=== PATIENT | female | born 1955 | race Caucasian/White ===

== ENCOUNTER 2020-08-25 08:28 | Emergency (ER) | payer OTHER, SELFPAY ==
[2020-08-25 08:45] VITALS: BP 194/86; PULSE 100; RESP 18; O2SAT 99; BMI 44.0
[2020-08-25 09:24] LABS: Add Manual Diff / Slide Review NO; Basophils Absolute Auto 0 /uL (0-100); Basophils Percent Auto 0.4 % (0-2); Eosinophils Absolute Auto 300 /uL (0-450); Hematocrit 37.7 % (36-46); Hemoglobin 12.5 g/dL (12.0-16.0); Lymphocytes Absolute Auto 1400 /uL (1100-4500); Lymphocytes Percent Auto 12.3 % (25-40); Mean Corpuscular HGB Conc 33.2 % (30-36); Mean Corpuscular Hemoglobin 28.2 PG (26-34); Monocytes Absolute Auto 500 /uL (0-900); Monocytes Percent Auto 4.4 % (3-14); Neutrophils Absolute Auto 8800 /uL (1500-7000); Neutrophils Percent Auto 79.9 % (50-75); Platelet Count 275 X10^3/uL (150-400); Red Blood Cell Count 4.44 X10^6/uL (4.0-5.2); Red Cell Distribution Width 14.9 % (11.6-14.8); White Blood Cell Count 11.1 X10^3/uL (4.5-11.0)
--- NOTE | 2020-08-25 09:26 | ED.NAVMDI ---
HPI - Nausea/Vomiting/Diarrhea General Chief complaint: Abdominal Pain Stated complaint: Diarrhea abd pain intermittenly x10 days Time Seen by Provider: 08/25/20 09:19 Source: patient Mode of arrival: Ambulatory Limitations: no limitations History of Present Illness HPI Narrative: The patient is a 65-year-old female who has an unknown immune disorder presenting with 10 days worth of diarrhea. She says she had a girlfriend went on a road trip over 08 of August weekend she then started having diarrhea. Diarrhea seems to have progressively gotten worse it is nonbloody this morning she woke up incontinent of stool. She has abdominal cramping as well. No nausea or vomiting no fevers or chills. She does have intense abdominal pain at times. She is not dizzy or lightheaded. However the diarrhea has gotten quite out of control. Her friend is not sick. No one else has similar symptoms. Related Data Allergies Allergy/AdvReac Type Severity Reaction Status Date / Time Penicillins Allergy Verified 08/25/20 08:47 Review of Systems Review of Systems Narrative: GENERAL: Denies chills, fatigue, malaise, fever, sweats, travel HEENT: Denies sinus pain, ear pain, sore throat, difficulty swallowing, neck pain RESPIRATORY: Denies dyspnea, cough, wheezing, hemoptysis, sputum. CARDIOVASCULAR: Denies chest pain, palpitations, orthopnea, edema GASTROINTESTINAL: See HPI : Denies dysuria, frequency, incontinence, hematuria, urinary retention, flank pain. MUSCULOSKELETAL: Denies weakness, joint pain, or bony pain SKIN: No rash, no erythema, no pruritus NEUROLOGIC: Denies weakness, dizziness, headache, numbness, change in speech, confusion PSYCHIATRIC: No concerning psychosocial issues. 12 point review of systems is negative except for those stated above and HPI Patient History Social History Smoking Status: Never smoker Smoking Status: Never smoker Substance Use Type: does not use Exam Initial Vital Signs Initial Vital Signs: Vital Signs Pulse Rate 100 H 08/25/20 08:45 Respiratory Rate 18 08/25/20 08:45 Blood Pressure 194/86 H 08/25/20 08:45 Pulse Oximetry 99 08/25/20 08:45 GENERAL: Alert well-appearing 65-year-old female and in no acute distress HEENT: Head atraumatic,EOMI, pupils reactive, face symmetric,mois mucous membranes CARDIOVASCULAR: Regular rate and rhythm without murmurs, rubs or gallops. RESPIRATORY: Breath sounds equal bilaterally, no wheezes rales or rhonchi. ABDOMEN: Soft mild diffuse abdominal tenderness Normoactive bowel sounds all 4 quadrants. No guarding or rebound. EXTREMITIES: Normal range of motion, no clubbing or edema. Neurovascularly intact NEUROLOGICAL: Alert and oriented x4.Normal gait and speech. SKIN: Warm, dry, no laceration, no petechiae, no rashes or lesions. Course Orders Ordered: Discontinued Medications Acetaminophen (Acetaminophen 325 Mg Tablet) 975 mg PO NOW ONE Stop: 08/25/20 09:20 Last Admin: 08/25/20 09:30 Dose: 975 mg Documented by: HALEY Sodium Chloride (Normal Saline 0.9%) 1,000 mls @ 1,000 mls/hr IV BOLUS ONE Stop: 08/25/20 10:18 Last Infusion: 08/25/20 10:57 Dose: 0 mls/hr Documented by: Admin: 08/25/20 09:30 Dose: 1,000 mls/hr Documented by: HALEY Vital Signs Vital signs: Vital Signs - 8 hr 08/25/20 08:45 Pulse Rate 100 H Respiratory Rate 18 Blood Pressure 194/86 H Pulse Oximetry 99 MDM - Nausea/Vomiting/Diarrhea Lab Data Result diagrams: 08/25/20 09:00 08/25/20 09:00 Labs: Lab Results 08/25/20 08/25/20 08/25/20 Range/Units 08:50 09:00 09:00 WBC 11.1 H (4.5-11.0) X10^3/uL RBC 4.44 (4.0-5.2) X10^6/uL Hgb 12.5 (12.0-16.0) g/dL Hct 37.7 (36-46) % MCV 85.0 (80-100) fL MCH 28.2 (26-34) PG MCHC 33.2 (30-36) % RDW 14.9 H (11.6-14.8) % Plt Count 275 (150-400) X10^3/uL Neut % (Auto) 79.9 H (50-75) % Lymph % (Auto) 12.3 L (25-40) % Cla[place]orne % (Auto) 4.4 (3-14) % Eos % (Auto) 3.0 (2-4) % Baso % (Auto) 0.4 (0-2) % Neut # (Auto) 8800 H (6620-9703) /uL Lymph # (Auto) 1400 (1238-4186) /uL [place]orne # (Auto) 500 (0-900) /uL Eos # (Auto) 300 (0-450) /uL Baso # (Auto) 0 (0-100) /uL Sodium 138 (137-145) mmol/L Potassium 3.5 (3.4-5.1) mmol/L Chloride 99 (98-107) mmol/L Carbon Dioxide 28 (22-32) mmol/L BUN 24 H (7-17) mg/dL Creatinine 0.84 (0.52-1.04) mg/dL Estimated GFR > 60.0 (>60) mL/min BUN/Creatinine Ratio 28.6 H (6-22) Glucose 114 H (80-110) mg/dL Calcium 10.2 (8.4-10.2) mg/dL Total Bilirubin 0.4 (0.2-1.3) mg/dL AST 34 (14-36) IU/L ALT 27 (<35) IU/L Alkaline Phosphatase 96 (38-126) U/L Total Protein 7.5 (6.3-8.2) g/dL Albumin 4.5 (3.5-5.0) g/dL Globulin 3.0 (1.7-4.1) g/dL Albumin/Globulin Ratio 1.5 (1.0-2.8) Lipase 163 (23-300) U/L Stl C. cayetanensis PCR Not detected (Not Detect) Stool Rotavirus (PCR) Not detected (Not Detect) Stool Adenovirus (PCR) Not detected (Not Detect) Stool Astrovirus (PCR) Not detected (Not Detect) Stool Cryptosporidium PCR Not detected (Not Detect) Stl E.coli Shiga Tox PCR Not detected (Not Detect) St Sh/Enteroin Ecoli PCR Not detected (Not Detect) Stool E coli O157 PCR Not Reportable Stl Enterotoxigenic E PCR Not detected (Not Detect) Stool EPEC (PCR) Not detected (Not Detect) Stl E. histolytica PCR Not detected (Not Detect) Stool Giardia Lamblia PCR Not detected (Not Detect) Stool Sapovirus (PCR) Not detected (Not Detect) Stl P. shigelloides PCR Not detected (Not Detect) St Y.enterocolitica PCR Not detected (Not Detect) Stool Vibrio (PCR) Not detected (Not Detect) Stl Vibrio cholerae PCR Not detected (Not Detect) Stl Enteroaggr Ecoli PCR Not detected (Not Detect) Stl Norovirus GI/GII PCR Detected H (Not Detect) Campylobacter (PCR) Not detected (Not Detect) C. difficile Tox (PCR) Not detected (Not Detect) Salmonella (PCR) Not detected (Not Detect) MDM Narrative Medical decision making narrative: The patient has been having ongoing diarrhea for the last 10 days. Blood work does not show any significant dehydration. GI panel is positive for norovirus. At this time recommend Imodium increasing fluids and conservative treatment. She understands and agrees with treatment plan. At this time I see no need for admission. Discharge Plan Departure Patient Disposition: Home Clinical Impression: Norovirus Instructions: Norovirus Infection Activity Restrictions/Additional Instructions: *You have been diagnosed with norovirus *What to do: At this time you have a virus which is causing her diarrhea. He may take Imodium as directed to help stop the diarrhea. Please stay hydrated with either water or Gatorade like substance. Unfortunately this resolves on its own and there is no other medication to give you. *Continue to take medications as directed *Follow up with your primary care provider in 2-3 days *Return to ER if you should have dizziness lightheadedness, passing out vomiting worsening diarrhea or any new, worsening or concerning symptoms Referrals: [facility] [Outside]
[2020-08-25 09:29] LABS: HEMOLYSIS < 15 (0-50); Potassium 3.5 mmol/L (3.4-5.1)
[2020-08-25 09:30] VITALS: BP 164/77; PULSE 93; RESP 15; O2SAT 99
[2020-08-25 09:30] LABS: Alanine Aminotransferase 27 IU/L (<35); Albumin 4.5 g/dL (3.5-5.0); Albumin Globulin Ratio 1.5 (1.0-2.8); Alkaline Phosphatase 96 U/L (38-126); Aspartate Aminotransferase 34 IU/L (14-36); BUN Creatinine Ratio 28.6 (6-22); Bilirubin Total 0.4 mg/dL (0.2-1.3); Blood Urea Nitrogen 24 mg/dL (7-17); Calcium 10.2 mg/dL (8.4-10.2); Carbon Dioxide 28 mmol/L (22-32); Chloride 99 mmol/L (98-107); Estimated Glomerular Filt Rate > 60.0 mL/min (>60); Glucose 114 mg/dL (80-110); Lipase 163 U/L (23-300); Sodium 138 mmol/L (137-145); Total Protein 7.5 g/dL (6.3-8.2)
[2020-08-25] MEDS: SODIUM CHLORIDE 0.9% 1,000 ML 1000 ML IV (09:30)
[2020-08-25] MEDS: ACETAMINOPHEN 325 MG TABLET 975 MG PO (09:30)
[2020-08-25 10:00] VITALS: BP 163/74; PULSE 85; RESP 14; O2SAT 99
[2020-08-25 10:35] LABS: Campylobacter Not Detected (Not Detect); Clostridium difficile toxin AB Not Detected (Not Detect); Enteroaggregative E.coli Not Detected (Not Detect); Enteropathogenic E.coli Not Detected (Not Detect); Enterotoxigenic E.coli It/st Not Detected (Not Detect); Plesiomonsa shigelloides Not Detected (Not Detect); Salmonella Not Detected (Not Detect); Shiga-like toxin-prod E.coli Not Detected (Not Detect); Vibrio Not Detected (Not Detect); Vibrio cholerae Not Detected (Not Detect); Yersinia enterocolitica Not Detected (Not Detect)
[2020-08-25 10:36] LABS: Adenovirus F 40/41 Not Detected (Not Detect); Astrovirus Not Detected (Not Detect); Cryptosporidium Not Detected (Not Detect); Cyclospora cayetanensis Not Detected (Not Detect); Entamoeba histolytica Not Detected (Not Detect); Giardia lamblia Not Detected (Not Detect); Norovirus GI/GII Detected (Not Detect); Rotavirus A Not Detected (Not Detect); Sapovirus Not Detected (Not Detect); Shigella/Enteroinvasive E.coli Not Detected (Not Detect)
[2020-08-25 11:00] VITALS: BP 150/71; PULSE 89; RESP 14; O2SAT 99
== END 2020-08-25 11:45 | disposition home or self-care (01) ==
PROVIDERS: Emergency Provider Emergency Medicine
DX: A08.11 Acute gastroenteropathy due to Norwalk agent (principal)
CPT/HCPCS: 36415; 80053; 83690; 85025; 87507; 96360; 99284

== ENCOUNTER → 2020-10-19 10:53 | Outpatient (CLI) | payer OTHER, SELFPAY ==
[2020-10-19 12:02] LABS: Add Manual Diff / Slide Review NO; Basophils Absolute Auto 0 /uL (0-100); Basophils Percent Auto 0.7 % (0-2); Eosinophils Absolute Auto 200 /uL (0-450); Eosinophils Percent Auto 3.2 % (2-4); Hemoglobin 11.9 g/dL (12.0-16.0); Lymphocytes Absolute Auto 2200 /uL (1100-4500); Mean Corpuscular HGB Conc 33.1 % (30-36); Mean Corpuscular Hemoglobin 28.2 PG (26-34); Mean Corpuscular Volume 85.2 fL (80-100); Monocytes Absolute Auto 400 /uL (0-900); Monocytes Percent Auto 6.8 % (3-14); Neutrophils Absolute Auto 3600 /uL (1500-7000); Neutrophils Percent Auto 55.3 % (50-75); Platelet Count 269 X10^3/uL (150-400); Red Blood Cell Count 4.23 X10^6/uL (4.0-5.2); Red Cell Distribution Width 14.6 % (11.6-14.8); White Blood Cell Count 6.5 X10^3/uL (4.5-11.0)
[2020-10-19 12:15] LABS: Hemoglobin A1C% w Est Avg Glu 5.4 % (4.0-6.0)
[2020-10-19 12:58] LABS: Alanine Aminotransferase 28 IU/L (<35); Albumin 4.4 g/dL (3.5-5.0); Albumin Globulin Ratio 1.6 (1.0-2.8); Alkaline Phosphatase 65 U/L (38-126); Aspartate Aminotransferase 36 IU/L (14-36); BUN Creatinine Ratio 21.7 (6-22); Bilirubin Total 0.3 mg/dL (0.2-1.3); Blood Urea Nitrogen 18 mg/dL (7-17); Calcium 9.4 mg/dL (8.4-10.2); Carbon Dioxide 31 mmol/L (22-32); Chloride 99 mmol/L (98-107); Estimated Glomerular Filt Rate > 60.0 mL/min (>60); Globulin 2.8 g/dL (1.7-4.1); Glucose 107 mg/dL (80-110); HEMOLYSIS < 15 (0-50); Potassium 3.6 mmol/L (3.4-5.1); Sodium 137 mmol/L (137-145); Total Protein 7.2 g/dL (6.3-8.2)
[2020-10-19 13:13] LABS: Free T3, Triiodothyronine Free 3.12 pg/mL (2.77-5.27); Free T4, Direct Thyroxine 1.18 ng/dL (0.78-2.19)
[2020-10-19 13:27] LABS: Thyroid Stimulating Hormone 2.61 uIU/mL (0.47-4.68)
[2020-10-19 16:18] LABS: Vitamin D 25 Hydroxy (D3) 50.7 ng/mL (30.0-100.0)
[2020-10-20 04:36] LABS: Homocysteine 12.9 umol/L (0.0-17.2)
[2020-10-20 08:53] LABS: Thyroid Peroxidase Antibodies <8 IU/mL (0-34); Triiodothyronine T3 Total 118 ng/dL (71-180)
[2020-10-20 10:00] LABS: Insulin Level Total 18.5 uIU/mL (2.6-24.9)
[2020-10-20 16:16] LABS: Cadmium, Blood None Detected ug/L (0.0-1.2); Lead, Blood < 1 ug/dL (0-4); Mercury, Blood 1.2 ug/L (0.0-14.9)
[2020-10-20 18:42] LABS: Anti Thyroglobulin Antibody <1.0 IU/mL (0.0-0.9)
[2020-10-21 08:36] LABS: Cholesterol, Total 150 mg/dL (100-199); HDL-Cholesterol 52 mg/dL (>39); HDL-Particle (Total) 35.4 umol/L (>=30.5); LDL Particle 1221 nmol/L (<1000); LDL Size 20.5 nm (>20.5); LDL-Cholsterol 75 mg/dL (0-99); LP-IR Score 82 (<=45); Small LDL- Particle 690 nmol/L (<=527); Triglycerides 128 mg/dL (0-149)
[2020-10-28 16:13] LABS: Epstein Barr Virus by PCR Negative (Negative)
== END ==
PROVIDERS: Referring Provider Family Medicine; Visit Provider Family Medicine
DX: G89.29 Other chronic pain (principal); R19.7 Diarrhea, unspecified; E66.3 Overweight; D89.89 Other specified disorders involving the immune mechanism, not elsewhere classified; E56.9 Vitamin deficiency, unspecified
CPT/HCPCS: 36415; 80053; 80061; 82175; 82300; 82306; 83036; 83090; 83525; 83655; 83704; 83825; 84439; 84443; 84480; 84481; 84482; 85025; 86140; 86376; 86663; 86800; 87798

== ENCOUNTER → 2020-11-30 11:11 | Outpatient (CLI) | payer OTHER, SELFPAY ==
[2020-11-30 13:00] LABS: HEMOLYSIS < 15 (0-50); Iron 49 ug/dL (37-170)
[2020-11-30 13:11] LABS: Percent Iron Saturation 15 % (15-50); Total Iron Binding Capacity 323 ug/dL (265-497); Transferrin 271 mg/dL (206-381)
[2020-11-30 13:24] LABS: Ferritin 146 ng/mL (11-264)
[2020-12-01 04:48] LABS: IGA 171 mg/dL (87-352); IGG 607 mg/dL (586-1602); IGM 78 mg/dL (26-217)
== END ==
PROVIDERS: Referring Provider Family Medicine; Visit Provider Family Medicine
DX: D89.89 Other specified disorders involving the immune mechanism, not elsewhere classified (principal); M41.24 Other idiopathic scoliosis, thoracic region; E63.9 Nutritional deficiency, unspecified; G89.29 Other chronic pain; R79.82 Elevated C-reactive protein (CRP)
CPT/HCPCS: 36415; 81291; 82728; 82784; 83540; 83550

== ENCOUNTER → 2021-01-22 10:40 | Outpatient (CLI) | payer OTHER, SELFPAY ==
[2021-01-22 12:50] LABS: HEMOLYSIS < 15 (0-50); Iron 51 ug/dL (37-170)
[2021-01-22 13:01] LABS: Percent Iron Saturation 15 % (15-50); Total Iron Binding Capacity 333 ug/dL (265-497); Transferrin 250 mg/dL (206-381)
[2021-01-22 13:26] LABS: Ferritin 196 ng/mL (11-264)
[2021-01-23 09:36] LABS: IGA 176 mg/dL (87-352); IGG 699 mg/dL (586-1602); IGM 94 mg/dL (26-217)
== END ==
PROVIDERS: Referring Provider Family Medicine; Visit Provider Family Medicine
DX: D89.89 Other specified disorders involving the immune mechanism, not elsewhere classified (principal); M41.24 Other idiopathic scoliosis, thoracic region; G89.29 Other chronic pain; E63.9 Nutritional deficiency, unspecified; R79.82 Elevated C-reactive protein (CRP)
CPT/HCPCS: 36415; 81291; 82728; 82784; 83540; 83550

== ENCOUNTER → 2021-03-19 12:14 | Outpatient (CLI) | payer OTHER, SELFPAY ==
[2021-03-19 13:39] LABS: Add Manual Diff / Slide Review NO; Basophils Absolute Auto 100 /uL (0-100); Basophils Percent Auto 1.1 % (0-2); Eosinophils Absolute Auto 200 /uL (0-450); Eosinophils Percent Auto 3.5 % (2-4); Hematocrit 35.2 % (36-46); Hemoglobin 11.6 g/dL (12.0-16.0); Lymphocytes Absolute Auto 2800 /uL (1100-4500); Lymphocytes Percent Auto 42.3 % (25-40); Mean Corpuscular HGB Conc 32.9 % (30-36); Mean Corpuscular Hemoglobin 28.2 PG (26-34); Mean Corpuscular Volume 85.5 fL (80-100); Monocytes Absolute Auto 500 /uL (0-900); Monocytes Percent Auto 7.3 % (3-14); Neutrophils Absolute Auto 3100 /uL (1500-7000); Neutrophils Percent Auto 45.8 % (50-75); Platelet Count 242 X10^3/uL (150-400); Red Blood Cell Count 4.12 X10^6/uL (4.0-5.2); Red Cell Distribution Width 15.5 % (11.6-14.8); White Blood Cell Count 6.7 X10^3/uL (4.5-11.0)
[2021-03-19 14:30] LABS: C-Reactive Protein Quant < 0.5 mg/dL (<1.0)
[2021-03-19 17:50] LABS: Vitamin D 25 Hydroxy (D3) 54.5 ng/mL (30.0-100.0)
[2021-03-20 12:07] LABS: Homocysteine 12.9 umol/L (0.0-17.2)
[2021-03-21 04:17] LABS: Zinc 99 ug/dL (44-115)
== END ==
PROVIDERS: Referring Provider Family Medicine; Visit Provider Family Medicine
DX: Z77.120 Contact with and (suspected) exposure to mold (toxic) (principal); R79.82 Elevated C-reactive protein (CRP); D89.89 Other specified disorders involving the immune mechanism, not elsewhere classified; E63.9 Nutritional deficiency, unspecified
CPT/HCPCS: 36415; 82306; 82525; 83090; 84630; 85025; 86140

== ENCOUNTER → 2021-06-16 09:51 | Outpatient (CLI) | payer OTHER, SELFPAY ==
--- NOTE | 2021-06-16 09:58 | DI.MG.S_ITS ---
BILATERAL DIGITAL SCREENING MAMMOGRAM 3D/2D WITH CAD: 06/16/2021 CLINICAL: Routine screening. Baseline exam by default. No prior exams were available for comparison. The tissue of both breasts is predominantly fatty. Current study was also evaluated with a Computer Aided Detection (CAD) system. There is a 0.3 cm irregular asymmetry in the right breast at 1 o'clock middle depth 10 cm from the nipple. No other significant masses, calcifications, or other findings are seen in either breast. IMPRESSION: INCOMPLETE: NEEDS ADDITIONAL IMAGING EVALUATION The 0.3 cm irregular asymmetry in the right breast is indeterminate. Additional views with possible ultrasound are recommended. This exam was interpreted at Station ID: [id number]. NOTE: For mammograms, a report in lay terms will be sent to the patient. Approximately 15% of breast malignancies will not be visualized mammographically. In the management of a palpable breast mass, a negative mammogram must not discourage biopsy of a clinically suspicious lesion. Electronically Signed By: Leo Stevenson acr/:06/16/2021 14:01:36 letter sent: Additional Imaging Needed ACR BI-RADS Category 0: Incomplete 3340F
[2021-06-16 11:58] LABS: Add Manual Diff / Slide Review NO; Basophils Absolute Auto 100 /uL (0-100); Basophils Percent Auto 0.8 % (0-2); Eosinophils Absolute Auto 300 /uL (0-450); Eosinophils Percent Auto 4.1 % (2-4); Hematocrit 36.5 % (36-46); Hemoglobin 12.2 g/dL (12.0-16.0); Lymphocytes Absolute Auto 2800 /uL (1100-4500); Lymphocytes Percent Auto 37.7 % (25-40); Mean Corpuscular HGB Conc 33.4 % (30-36); Mean Corpuscular Hemoglobin 28.5 PG (26-34); Mean Corpuscular Volume 85.3 fL (80-100); Monocytes Absolute Auto 400 /uL (0-900); Monocytes Percent Auto 5.9 % (3-14); Neutrophils Absolute Auto 3800 /uL (1500-7000); Neutrophils Percent Auto 51.5 % (50-75); Platelet Count 239 X10^3/uL (150-400); Red Blood Cell Count 4.28 X10^6/uL (4.0-5.2); Red Cell Distribution Width 14.2 % (11.6-14.8); White Blood Cell Count 7.3 X10^3/uL (4.5-11.0)
[2021-06-16 13:26] LABS: Appearance Urine UA CLEAR; Bilirubin Urine UA NEGATIVE (NEGATIVE); Color Urine UA YELLOW; Glucose Urine UA NEGATIVE (Negative); Ketones Urine UA NEGATIVE (NEGATIVE); Leukocyte Esterase Urine UA TRACE (NEGATIVE); Nitrite Urine UA NEGATIVE (Negative); Occult Blood Urine UA TRACE-LYSED (Negative); Protein Urine UA NEGATIVE (Negative); Specific Gravity Urine UA 1.025 (1.000-1.035); Urobilinogen Urine UA 0.2 E.U./dL (0.2)
[2021-06-16 13:31] LABS: Bacteria Urine None Seen; Culture Indicated Urine Cult Not Indicated; RBC Urine 0-1/HPF (0-5/HPF); Squamous Epithelial Cell Urine 5-10 /HPF (0-5/HPF); WBC Urine 1-5/HPF (0-5/HPF)
== END ==
PROVIDERS: Internal Medicine
DX: Z78.0 Asymptomatic menopausal state; Z77.120 Contact with and (suspected) exposure to mold (toxic); D64.9 Anemia, unspecified; D89.89 Other specified disorders involving the immune mechanism, not elsewhere classified; E63.9 Nutritional deficiency, unspecified; Z13.820 Encounter for screening for osteoporosis; Z12.31 Encounter for screening mammogram for malignant neoplasm of breast; R35.0 Frequency of micturition; Z90.710 Acquired absence of both cervix and uterus
CPT/HCPCS: 36415; 77063; 77067; 77080; 81001; 85025

== ENCOUNTER → 2021-08-04 11:52 | Outpatient (CLI) | payer OTHER, SELFPAY ==
--- NOTE | 2021-08-04 | DI.MG.S_ITS ---
UNILATERAL RIGHT DIGITAL DIAGNOSTIC MAMMOGRAM 3D/2D WITH ADDITIONAL VIEWS: 08/04/2021 CLINICAL: Additional evaluation requested from prior study. Comparison is made to exam dated: 06/16/2021 mammogram - [facility] [place]. The tissue of right breast is predominantly fatty. The previously described 0.3 cm irregular asymmetry in the right breast at 1 o'clock middle depth 10 cm from the nipple is no longer seen in today's additional views. This is consistent with summation artifact. No other significant masses or calcifications are seen in the breast. IMPRESSION: BENIGN The previously described asymmetry disperses with additional views and is consistent with summation artifact. There is no mammographic evidence of malignancy. A 1 year screening mammogram is recommended. Based on the Tyrer Cuzick model (a risk assessment model) the patient's lifetime risk is 3.8% and her 10 year risk is 1.9%. According to the ACR, ACS, and NCCN guidelines, an annual breast MRI exam along with mammogram is recommended if the patient's lifetime risk is 20% or greater. Findings and recommendations were conveyed to the patient during today's evaluation. This exam was interpreted at Station ID: [id number]. NOTE: For mammograms, a report in lay terms will be sent to the patient. Approximately 15% of breast malignancies will not be visualized mammographically. In the management of a palpable breast mass, a negative mammogram must not discourage biopsy of a clinically suspicious lesion. Electronically Signed By: Simone Decker M.D. aty/:08/04/2021 12:48:06 Entry: - 08/05/2021 10:06:13 letter sent: Normal Exam ACR BI-RADS Category 2: Benign Finding(s) 3342F
== END ==
PROVIDERS: Referring Provider Internal Medicine; Visit Provider Internal Medicine
DX: R92.8 Other abnormal and inconclusive findings on diagnostic imaging of breast (principal)
CPT/HCPCS: 77065; G0279

== ENCOUNTER 2021-10-25 10:05 | Emergency (ER) | payer OTHER, SELFPAY ==
[2021-10-25 10:38] VITALS: BP 137/77; PULSE 78; RESP 15; TEMP 36; O2SAT 98; BMI 35.3
--- NOTE | 2021-10-25 13:00 | ED_ITS ---
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 She states she also takes chlorthalidone. Patient states that she eats a Paleo diet without greens, has had left lower quadrant pain for the last 4 days with all foods. States that she is had some belching and gas pains but denies any vomiting, diarrhea, denies any blood in her stool. She states that she has felt fatigued, warm and cold, denies any pain with defecation, denies any urinary frequency, urgency, dysuria or flank pain. Denies any epigastric pain, chest pain or shortness of breath. Denies any history of diverticulitis. Related Data Previous Rx's Medication Instructions Recorded ciprofloxacin HCl 500 mg tablet 500 mg PO BID 10 days #20 tabs 10/25/21 (Cipro) metronidazole 500 mg tablet 500 mg PO TID diverticulitis 10 10/25/21 days #30 tabs potassium chloride 20 mEq 20 meq PO BID 7 days #14 tabs 10/25/21 tablet,extended release Allergies Allergy/AdvReac Type Severity Reaction Status Date / Time Penicillins Allergy Verified 08/25/20 08:47 Review of Systems <GURWINDER Desai - Last Filed: 10/26/21 20:30> Review of Systems Narrative: Review of systems is negative for acute abnormalities unless otherwise noted in HPI Patient History <GURWINDER Desai - Last Filed: 10/26/21 20:30> Social History Smoking Status: Never smoker Smoking Status: Never smoker Substance Use Type: does not use Exam <GURWINDER Desai - Last Filed: 10/26/21 20:30> Narrative Exam Narrative: Reviewed vitals signs and nursing notes. General: cooperative, comfortable, in no acute distress, well groomed HEENT: symmetrical facial expressions, moist mucous membranes Cardiovascular: regular rate and rhythm, no peripheral edema, warm extremities Respiratory: normal effort, able to speak in complete sentences, without wheezing, stridor, or abnormal breath sounds. No retractions or tachypnea. GI: abdomen soft, tender to palpation over left lower quadrant, no suprapubic tenderness, nondistended, without masses, rebound tenderness or exquisite tenderness with exam. MSK: moves all extremities, neurovascularly intact, no weakness, normal tone Skin: brisk capillary refill, without pallor or erythema Neuro: normal speech and cognition, A&O x3, ambulatory, clear speech Psych: mental status is grossly normal, congruent mood, normal affect, pleasant and cooperative Initial Vital Signs Initial Vital Signs: Vital Signs Temperature 96.8 F L 10/25/21 10:38 Pulse Rate 78 10/25/21 10:38 Respiratory Rate 15 10/25/21 10:38 Blood Pressure 137/77 10/25/21 10:38 Pulse Oximetry 98 10/25/21 10:38 Oxygen Delivery Method 10/25/21 10:38 <Ekta Gomez DO - Last Filed: 10/27/21 05:35> Initial Vital Signs Initial Vital Signs: Vital Signs Temperature 96.8 F L 10/25/21 10:38 Pulse Rate 78 10/25/21 10:38 Respiratory Rate 15 10/25/21 10:38 Blood Pressure 137/77 10/25/21 10:38 Pulse Oximetry 98 10/25/21 10:38 Oxygen Delivery Method 10/25/21 10:38 Course <GURWINDER Desai - Last Filed: 10/26/21 20:30> Orders Ordered: Discontinued Medications Acetaminophen (Acetaminophen 325 Mg Tablet) 975 mg PO NOW ONE Stop: 10/25/21 13:46 Last Admin: 10/25/21 13:48 Dose: 975 mg Documented By: [facility] Ciprofloxacin (Ciprofloxacin 250 Mg Tablet) 500 mg PO NOW ONE Stop: 10/25/21 14:20 Last Admin: 10/25/21 14:34 Dose: 500 mg Documented By: [facility] Lactated Ringer's (Lactated Ringers) 1,000 mls @ 1,000 mls/hr IV BOLUS ONE Stop: 10/25/21 13:55 Last Infusion: 10/25/21 14:34 Dose: 0 mls/hr Documented By: Admin: 10/25/21 13:23 Dose: 1,000 mls/hr Documented By: [facility] Ketorolac Tromethamine (Ketorolac 30 Mg/Ml Vial) 15 mg IV NOW ONE Stop: 10/25/21 13:25 Last Admin: 10/25/21 13:46 Dose: Not Given Documented By: [facility] Metronidazole (Metronidazole 500 Mg Tablet) 500 mg PO NOW ONE Stop: 10/25/21 14:20 Last Admin: 10/25/21 14:34 Dose: 500 mg Documented By: [facility] Potassium Chloride (Potassium Chloride 20 Meq/15 Ml Udc) 40 meq PO NOW ONE Stop: 10/25/21 14:32 Last Admin: 10/25/21 14:39 Dose: 40 meq Documented By: [facility] Vital Signs Vital signs: Vital Signs - 8 hr 10/25/21 10:38 10/25/21 13:06 10/25/21 13:25 Temperature 96.8 F L Pulse Rate 78 69 67 Respiratory Rate 15 20 Blood Pressure 137/77 Pulse Oximetry 98 97 98 Oxygen Delivery Method Room Air 10/25/21 13:25 10/25/21 13:30 10/25/21 13:30 Temperature Pulse Rate 67 Respiratory Rate 20 Blood Pressure 147/73 H 143/80 H Pulse Oximetry 97 Oxygen Delivery Method 10/25/21 13:50 10/25/21 14:31 Temperature Pulse Rate 75 Respiratory Rate 23 Blood Pressure 150/72 H Pulse Oximetry 98 Oxygen Delivery Method <Ekta Gomez, - Last Filed: 10/27/21 05:35> Orders Ordered: Discontinued Medications Acetaminophen (Acetaminophen 325 Mg Tablet) 975 mg PO NOW ONE Stop: 10/25/21 13:46 Last Admin: 10/25/21 13:48 Dose: 975 mg Documented By: [facility] Ciprofloxacin (Ciprofloxacin 250 Mg Tablet) 500 mg PO NOW ONE Stop: 10/25/21 14:20 Last Admin: 10/25/21 14:34 Dose: 500 mg Documented By: [facility] Lactated Ringer's (Lactated Ringers) 1,000 mls @ 1,000 mls/hr IV BOLUS ONE Stop: 10/25/21 13:55 Last Infusion: 10/25/21 14:34 Dose: 0 mls/hr Documented By: Admin: 10/25/21 13:23 Dose: 1,000 mls/hr Documented By: [facility] Ketorolac Tromethamine (Ketorolac 30 Mg/Ml Vial) 15 mg IV NOW ONE Stop: 10/25/21 13:25 Last Admin: 10/25/21 13:46 Dose: Not Given Documented By: [facility] Metronidazole (Metronidazole 500 Mg Tablet) 500 mg PO NOW ONE Stop: 10/25/21 14:20 Last Admin: 10/25/21 14:34 Dose: 500 mg Documented By: [facility] Potassium Chloride (Potassium Chloride 20 Meq/15 Ml Udc) 40 meq PO NOW ONE Stop: 10/25/21 14:32 Last Admin: 10/25/21 14:39 Dose: 40 meq Documented By: [facility] Vital Signs Vital signs: Vital Signs - 8 hr 10/25/21 10:38 10/25/21 13:06 10/25/21 13:25 Temperature 96.8 F L Pulse Rate 78 69 67 Respiratory Rate 15 20 Blood Pressure 137/77 Pulse Oximetry 98 97 98 Oxygen Delivery Method Room Air 10/25/21 13:25 10/25/21 13:30 10/25/21 13:30 Temperature Pulse Rate 67 Respiratory Rate 20 Blood Pressure 147/73 H 143/80 H Pulse Oximetry 97 Oxygen Delivery Method 10/25/21 13:50 10/25/21 14:31 Temperature Pulse Rate 75 Respiratory Rate 23 Blood Pressure 150/72 H Pulse Oximetry 98 Oxygen Delivery Method MDM - Abdominal Pain <VAISHNAVI DesaiP - Last Filed: 10/26/21 20:30> Lab Data Result diagrams: 10/25/21 13:00 10/25/21 13:00 Labs: Lab Results 10/25/21 10/25/21 10/25/21 Range/Units 12:50 13:00 13:00 WBC 12.4 H (4.5-11.0) X10^3/uL RBC 4.58 (4.0-5.2) X10^6/uL Hgb 13.2 (12.0-16.0) g/dL Hct 38.6 (36-46) % MCV 84.3 (80-100) fL MCH 28.8 (26-34) PG MCHC 34.1 (30-36) % RDW 13.3 (11.6-14.8) % Plt Count 241 (150-400) X10^3/uL Neut % (Auto) 61.6 (50-75) % Lymph % (Auto) 27.1 (25-40) % [place] % (Auto) 6.9 (3-14) % Eos % (Auto) 3.8 (2-4) % Baso % (Auto) 0.6 (0-2) % Neut # (Auto) 7600 H (0203-6080) /uL Lymph # (Auto) 3400 (5061-3994) /uL [place] # (Auto) 900 (0-900) /uL Eos # (Auto) 500 H (0-450) /uL Baso # (Auto) 100 (0-100) /uL Sodium 133 L (137-145) mmol/L Potassium 2.8 L (3.4-5.1) mmol/L Chloride 92 L (98-107) mmol/L Carbon Dioxide 34 H (22-32) mmol/L BUN 18 H (7-17) mg/dL Creatinine 0.99 (0.52-1.04) mg/dL Estimated GFR > 60 (>60) mL/min BUN/Creatinine Ratio 18.2 (6-22) Glucose 101 (80-110) mg/dL Lactate (0.7-2.1) mmol/L Calcium 9.3 (8.4-10.2) mg/dL Total Bilirubin 0.7 (0.2-1.3) mg/dL AST 35 (14-36) IU/L ALT 19 (<35) IU/L Alkaline Phosphatase 103 (38-126) U/L C-Reactive Protein (<1.0) mg/dL Total Protein 8.1 (6.3-8.2) g/dL Albumin 4.3 (3.5-5.0) g/dL Globulin 3.8 (1.7-4.1) g/dL Albumin/Globulin Ratio 1.1 (1.0-2.8) Lipase 226 (23-300) U/L Procalcitonin (<0.5) ng/mL Urine RBC None seen (0-5/HPF) Urine WBC 1-5/hpf (0-5/HPF) Ur Squamous Epith Cells 1-5 /hpf (0-5/HPF) Urine Bacteria Moderate (10-30) H (None) Ur Culture Indicated? Specimen cultured 10/25/21 10/25/21 Range/Units 13:00 13:00 WBC (4.5-11.0) X10^3/uL RBC (4.0-5.2) X10^6/uL Hgb (12.0-16.0) g/dL Hct (36-46) % MCV (80-100) fL MCH (26-34) PG MCHC (30-36) % RDW (11.6-14.8) % Plt Count (150-400) X10^3/uL Neut % (Auto) (50-75) % Lymph % (Auto) (25-40) % [place] % (Auto) (3-14) % Eos % (Auto) (2-4) % Baso % (Auto) (0-2) % Neut # (Auto) (7980-5715) /uL Lymph # (Auto) (8792-4106) /uL [place] # (Auto) (0-900) /uL Eos # (Auto) (0-450) /uL Baso # (Auto) (0-100) /uL Sodium (137-145) mmol/L Potassium (3.4-5.1) mmol/L Chloride (98-107) mmol/L Carbon Dioxide (22-32) mmol/L BUN (7-17) mg/dL Creatinine (0.52-1.04) mg/dL Estimated GFR (>60) mL/min BUN/Creatinine Ratio (6-22) Glucose (80-110) mg/dL Lactate 1.1 (0.7-2.1) mmol/L Calcium (8.4-10.2) mg/dL Total Bilirubin (0.2-1.3) mg/dL AST (14-36) IU/L ALT (<35) IU/L Alkaline Phosphatase (38-126) U/L C-Reactive Protein 12.7 H (<1.0) mg/dL Total Protein (6.3-8.2) g/dL Albumin (3.5-5.0) g/dL Globulin (1.7-4.1) g/dL Albumin/Globulin Ratio (1.0-2.8) Lipase (23-300) U/L Procalcitonin 0.06 (<0.5) ng/mL Urine RBC (0-5/HPF) Urine WBC (0-5/HPF) Ur Squamous Epith Cells (0-5/HPF) Urine Bacteria (None) Ur Culture Indicated? Point of care testing: Point of Care Testing Stool Occult Blood Negative Urine Dip Bedside Urine Glucose Negative Bedside Urine Bilirubin - Negative Bedside Urine Ketone - Negative Urine Specific [place] 1.015 Bedside Urine Occult Blood - Negative Bedside Urine pH 6.0 Bedside Urine Protein - Negative Bedside Urine Urobilinogen - Negative Bedside Urine Nitrite - Negative Bedside Urine Leukocytes +/- [address] scan - abdomen/pelvis: Radiologist's Impression: PROCEDURE:? CT ABDOMEN PELVIS W CON ? INDICATIONS:? diverticulitis?, LLQ pain ? TECHNIQUE:? After the administration of intravenous contrast, axial sections acquired from the lung bases to the pubic symphysis.? Coronal and sagittal reformats were performed.? For radiation dose reduction, the following was used:? automated exposure control, adjustment of mA and/or kV according to patient size.? ? COMPARISON:? None. ? FINDINGS:? Extensive diverticulosis in the distal descending colon and sigmoid colon.? Inflammatory changes centered on a diverticulum in the mid sigmoid colon with associated sigmoid colonic wall thickening and mucosal hyperenhancement along with adjacent fat stranding and small volume free fluid.? No fluid collection or free air.? Mild left pelvic sidewall reactive lymphadenopathy.? No salient abnormality otherwise. ? ? IMPRESSION:? [id number] acute sigmoid diverticulitis. ? ? Dictated by: Tyler Jon M.D. on 10/25/2021 at 14:12 ? ? Approved by: Tyler Jon M.D. on 10/25/2021 at 14:13 ? ECG Data Interpretation: EKG independently reviewed by myself at 1311 reveals normal sinus rhythm at 73 bpm with regular axis and intervals. No STEMI, ST segment changes, arrhythmia, or acute ischemic changes. MDM Narrative Medical decision making narrative: This is a 66-year-old female presents to the emergency department complaining of lower abdominal pain with all foods she has tried to eat. She denies any history of diverticulitis or fever with vomiting, states that she is been slightly constipated recently. Her lab work is significant for a mild leukocytosis of 12.4 with a left shift, hypokalemia with a potassium level of 2.8. Patient states that she has been taking a delbert supplement for ?buildup of mold in her body? and this may be where her hypokalemia is coming from because she does not have vomiting or diarrhea no presumed GI loss. Creatinine is 0.99, lactate is 1.1, total bilirubin is 0.7 AST of 35 ALT of 19 alk phos of 103, CRP is elevated at 12.7, procalcitonin is 0.06 and lipase of 226. Patient has moderate amount of bacteria found in her urine, this was sent for culture, she denied any dysuria, frequency or urgency symptoms. CT abdomen pelvis with contrast shows [id number] acute sigmoid diverticulitis which correlates with physical exam as patient was tender in her lower left quadrant. Denies any history of diverticulitis but states that her father and her mother both have history of this. Patient is allergic to penicillin, she was treated for diverticulitis and acute cystitis with Cipro and Flagyl, she was given a 10 day prescription of both and encouraged to follow-up with her primary care provider. She is given 40 mEq of potassium in the emergency department, she did not have any EKG changes on EKG. She is encouraged to start a clear liquid diet and to return for any new or worsening symptoms. Patient is appropriate and amenable to discharge home. Vital signs are stable on repeat examination is unremarkable. Patient has been informed of results. Patient has been given str ict return to ER precautions for any new or worsening symptoms. Patient understands to follow up closely with outpatient providers as instructed. Patient understands plan and agrees to discharge home. All questions and concerns answered at this time. <Ekta Gomez, DO - Last Filed: 10/27/21 05:35> Lab Data Labs: Lab Results 10/25/21 10/25/21 10/25/21 Range/Units 12:50 13:00 13:00 WBC 12.4 H (4.5-11.0) X10^3/uL RBC 4.58 (4.0-5.2) X10^6/uL Hgb 13.2 (12.0-16.0) g/dL Hct 38.6 (36-46) % MCV 84.3 (80-100) fL MCH 28.8 (26-34) PG MCHC 34.1 (30-36) % RDW 13.3 (11.6-14.8) % Plt Count 241 (150-400) X10^3/uL Neut % (Auto) 61.6 (50-75) % Lymph % (Auto) 27.1 (25-40) % [place] % (Auto) 6.9 (3-14) % Eos % (Auto) 3.8 (2-4) % Baso % (Auto) 0.6 (0-2) % Neut # (Auto) 7600 H (9145-5492) /uL Lymph # (Auto) 3400 (5724-5926) /uL [place] # (Auto) 900 (0-900) /uL Eos # (Auto) 500 H (0-450) /uL Baso # (Auto) 100 (0-100) /uL Sodium 133 L (137-145) mmol/L Potassium 2.8 L (3.4-5.1) mmol/L Chloride 92 L (98-107) mmol/L Carbon Dioxide 34 H (22-32) mmol/L BUN 18 H (7-17) mg/dL Creatinine 0.99 (0.52-1.04) mg/dL Estimated GFR > 60 (>60) mL/min BUN/Creatinine Ratio 18.2 (6-22) Glucose 101 (80-110) mg/dL Lactate (0.7-2.1) mmol/L Calcium 9.3 (8.4-10.2) mg/dL Total Bilirubin 0.7 (0.2-1.3) mg/dL AST 35 (14-36) IU/L ALT 19 (<35) IU/L Alkaline Phosphatase 103 (38-126) U/L C-Reactive Protein (<1.0) mg/dL Total Protein 8.1 (6.3-8.2) g/dL Albumin 4.3 (3.5-5.0) g/dL Globulin 3.8 (1.7-4.1) g/dL Albumin/Globulin Ratio 1.1 (1.0-2.8) Lipase 226 (23-300) U/L Procalcitonin (<0.5) ng/mL Urine RBC None seen (0-5/HPF) Urine WBC 1-5/hpf (0-5/HPF) Ur Squamous Epith Cells 1-5 /hpf (0-5/HPF) Urine Bacteria Moderate (10-30) H (None) Ur Culture Indicated? Specimen cultured 10/25/21 10/25/21 Range/Units 13:00 13:00 WBC (4.5-11.0) X10^3/uL RBC (4.0-5.2) X10^6/uL Hgb (12.0-16.0) g/dL Hct (36-46) % MCV (80-100) fL MCH (26-34) PG MCHC (30-36) % RDW (11.6-14.8) % Plt Count (150-400) X10^3/uL Neut % (Auto) (50-75) % Lymph % (Auto) (25-40) % [place] % (Auto) (3-14) % Eos % (Auto) (2-4) % Baso % (Auto) (0-2) % Neut # (Auto) (6939-0532) /uL Lymph # (Auto) (4924-2606) /uL [place] # (Auto) (0-900) /uL Eos # (Auto) (0-450) /uL Baso # (Auto) (0-100) /uL Sodium (137-145) mmol/L Potassium (3.4-5.1) mmol/L Chloride (98-107) mmol/L Carbon Dioxide (22-32) mmol/L BUN (7-17) mg/dL Creatinine (0.52-1.04) mg/dL Estimated GFR (>60) mL/min BUN/Creatinine Ratio (6-22) Glucose (80-110) mg/dL Lactate 1.1 (0.7-2.1) mmol/L Calcium (8.4-10.2) mg/dL Total Bilirubin (0.2-1.3) mg/dL AST (14-36) IU/L ALT (<35) IU/L Alkaline Phosphatase (38-126) U/L C-Reactive Protein 12.7 H (<1.0) mg/dL Total Protein (6.3-8.2) g/dL Albumin (3.5-5.0) g/dL Globulin (1.7-4.1) g/dL Albumin/Globulin Ratio (1.0-2.8) Lipase (23-300) U/L Procalcitonin 0.06 (<0.5) ng/mL Urine RBC (0-5/HPF) Urine WBC (0-5/HPF) Ur Squamous Epith Cells (0-5/HPF) Urine Bacteria (None) Ur Culture Indicated? Point of care testing: Point of Care Testing Stool Occult Blood Negative Urine Dip Bedside Urine Glucose Negative Bedside Urine Bilirubin - Negative Bedside Urine Ketone - Negative Urine Specific [place] 1.015 Bedside Urine Occult Blood - Negative Bedside Urine pH 6.0 Bedside Urine Protein - Negative Bedside Urine Urobilinogen - Negative Bedside Urine Nitrite - Negative Bedside Urine Leukocytes +/- 15 Esterase ECG Data Interpretation: EKG independently reviewed by myself at 1311 reveals normal sinus rhythm at 73 bpm with regular axis and intervals. No STEMI, ST segment changes, arrhythmia, or acute ischemic changes. Normal sinus rhythm rate 73 [place] interval 154 QRS [address] T Discharge Plan Departure Patient Disposition: Home Clinical Impression: Diverticulitis, Hypokalemia Acute cystitis Qualifiers: Hematuria presence: with hematuria Qualified Code(s): N30.01 - Acute cystitis with hematuria Instructions: Acute Cystitis, DI for Diverticulitis, Hypokalemia Activity Restrictions/Additional Instructions: *You have been diagnosed with diverticulitis. Please start with clear liquids, until your tolerating this then you can move on with diet recommendations as below that aligned with your diet. Please add a stool softener like MiraLax as needed to help keep your stool soft. Stay hydrated, please take these antibiotics for the next 10 days and return if you have any worsening of your symptoms. Please follow-up with your primary care provider in the meantime, and return to the emergency department or see your primary care provider if your symptoms are ongoing beyond the course of your antibiotics. I hope you feel better soon. Sorry for your symptoms. You can stop taking your antibiotics if you have 0 symptoms after 7 days. Please take the potassium supplement each day for the next 5 days as well. Please follow-up with your doctor to recheck your lab work. Diet details Your diet starts with only clear liquids for a few days. Examples of items allowed on a clear liquid diet include: * Broth * Fruit juices without pulp, such as apple juice * Ice chips * Ice pops without bits of fruit or fruit pulp * Gelatin * Water * Tea or coffee without cream As you start feeling better, your doctor will recommend that you slowly add low- fiber foods. Examples of low-fiber foods include: * Canned or cooked fruits without skin or seeds * Canned or cooked vegetables such as green beans, carrots and potatoes (without the skin) * Eggs, fish and poultry * Refined white bread * Fruit and vegetable juice with no pulp * Low-fiber cereals * Milk, yogurt and cheese * White rice, pasta and noodles Results You should feel better within two or three days of starting the diet and antibiotics. If you haven't started feeling better by then, call your doctor. Also contact your doctor if: * You develop a fever * Your abdominal pain is worsening * You're unable to keep clear liquids down These may indicate a complication that requires hospitalization. Risks Nutrition therapy for diverticulitis has few risks. However, continuing a clear liquid diet for more than a few days can lead to weakness and other complications, since it doesn't provide enough of the nutrients your body needs. For this reason, your doctor will want you to transition back to a normal diet that includes foods with fiber as soon as you can tolerate it. *What to do: *Please continue to take your regular medications as directed. [x ] New medication prescriptions sent to your pharmacy: [[facility] ] [ ] New medication written as a paper prescription [ ] No new medications given *Please follow up with your primary care provider in 2-3 days, call for an appointment. Let them know you were seen in the Emergency Department and that we asked that you be seen for follow-up. We will electronically transmit a record of today's note if your PCP is in our system *If you do not have a primary care provider please contact [phone] to establish care with one of the [facility] primary care providers. *Return to Emergency Department if you should have any new, worsening, or concerning symptoms, such as [fever greater than 101F, chills, worsening pain, persistent vomiting or other bothersome symptoms]. Prescriptions: New ciprofloxacin HCl [Cipro] 500 mg tablet 500 mg PO BID 10 Days Qty: 20 0RF metronidazole 500 mg tablet 500 mg PO TID 10 Days Qty: 30 0RF potassium chloride 20 mEq tablet extended release 20 meq PO BID 7 Days Qty: 14 0RF Referrals: Flores Owens MD [Primary Care Provider] - Visit Report Forms: Patient Portal/API <Ekta Gomez DO - Last Filed: 10/27/21 05:35> Cosign ED Attending Cosmanishaature Attestation: I was immediately available in the department for consultation. Documentation has been reviewed. I agree with assessment and plan.
[2021-10-25 13:06] VITALS: PULSE 69; O2SAT 97
[2021-10-25] MEDS: LACTATED RINGERS 1,000 ML 1000 ML IV (13:23)
[2021-10-25 13:25] VITALS: BP 147/73; PULSE 67; RESP 20; O2SAT 98
[2021-10-25 13:30] VITALS: BP 143/80; PULSE 67; RESP 20; O2SAT 97
[2021-10-25 13:32] LABS: Add Manual Diff / Slide Review NO; Basophils Absolute Auto 100 /uL (0-100); Basophils Percent Auto 0.6 % (0-2); Eosinophils Absolute Auto 500 /uL (0-450); Eosinophils Percent Auto 3.8 % (2-4); Hematocrit 38.6 % (36-46); Hemoglobin 13.2 g/dL (12.0-16.0); Lymphocytes Absolute Auto 3400 /uL (1100-4500); Lymphocytes Percent Auto 27.1 % (25-40); Mean Corpuscular HGB Conc 34.1 % (30-36); Mean Corpuscular Hemoglobin 28.8 PG (26-34); Mean Corpuscular Volume 84.3 fL (80-100); Monocytes Absolute Auto 900 /uL (0-900); Monocytes Percent Auto 6.9 % (3-14); Neutrophils Absolute Auto 7600 /uL (1500-7000); Neutrophils Percent Auto 61.6 % (50-75); Platelet Count 241 X10^3/uL (150-400); Red Blood Cell Count 4.58 X10^6/uL (4.0-5.2); Red Cell Distribution Width 13.3 % (11.6-14.8); White Blood Cell Count 12.4 X10^3/uL (4.5-11.0)
[2021-10-25 13:41] LABS: Bacteria Urine Moderate (10-30); Squamous Epithelial Cell Urine 1-5 /HPF (0-5/HPF); WBC Urine 1-5/HPF (0-5/HPF)
[2021-10-25 13:42] LABS: Culture Indicated Urine Specimen Cultured; RBC Urine None Seen (0-5/HPF)
[2021-10-25 13:46] LABS: Alanine Aminotransferase 19 IU/L (<35); Albumin 4.3 g/dL (3.5-5.0); Albumin Globulin Ratio 1.1 (1.0-2.8); Alkaline Phosphatase 103 U/L (38-126); Aspartate Aminotransferase 35 IU/L (14-36); BUN Creatinine Ratio 18.2 (6-22); Bilirubin Total 0.7 mg/dL (0.2-1.3); Blood Urea Nitrogen 18 mg/dL (7-17); Calcium 9.3 mg/dL (8.4-10.2); Carbon Dioxide 34 mmol/L (22-32); Chloride 92 mmol/L (98-107); Estimated Glomerular Filt Rate > 60 mL/min (>60); Globulin 3.8 g/dL (1.7-4.1); Glucose 101 mg/dL (80-110); HEMOLYSIS < 15 (0-50); Lipase 226 U/L (23-300); Potassium 2.8 mmol/L (3.4-5.1); Sodium 133 mmol/L (137-145); Total Protein 8.1 g/dL (6.3-8.2)
[2021-10-25 13:48] LABS: Lactate (Lactic Acid) 1.1 mmol/L (0.7-2.1)
[2021-10-25] MEDS: ACETAMINOPHEN 325 MG TABLET 975 MG PO (13:48)
[2021-10-25 13:50] VITALS: PULSE 75; RESP 23; O2SAT 98
[2021-10-25 13:59] LABS: C-Reactive Protein Quant 12.7 mg/dL (<1.0)
[2021-10-25 14:02] LABS: Procalcitonin 0.06 ng/mL (<0.5)
--- NOTE | 2021-10-25 14:07 | DI.CT.S_ITS ---
PROCEDURE: CT ABDOMEN PELVIS W CON INDICATIONS: diverticulitis?, LLQ pain TECHNIQUE: After the administration of intravenous contrast, axial sections acquired from the lung bases to the pubic symphysis. Coronal and sagittal reformats were performed. For radiation dose reduction, the following was used: automated exposure control, adjustment of mA and/or kV according to patient size. COMPARISON: None. FINDINGS: Extensive diverticulosis in the distal descending colon and sigmoid colon. Inflammatory changes centered on a diverticulum in the mid sigmoid colon with associated sigmoid colonic wall thickening and mucosal hyperenhancement along with adjacent fat stranding and small volume free fluid. No fluid collection or free air. Mild left pelvic sidewall reactive lymphadenopathy. No salient abnormality otherwise. IMPRESSION: [id number] acute sigmoid diverticulitis. Dictated by: Tyler Jon M.D. on 10/25/2021 at 14:12 Approved by: Tyler Jon M.D. on 10/25/2021 at 14:13
[2021-10-25 14:31] VITALS: BP 150/72; PULSE 68; O2SAT 98
[2021-10-25] MEDS: CIPROFLOXACIN 250 MG TABLET 500 MG PO (14:34)
[2021-10-25] MEDS: metroNIDAZOLE 500 MG TABLET PO (14:34)
[2021-10-25] MEDS: POTASSIUM CHLORIDE 20 MEQ/15 ML UDC 40 MEQ PO (14:39)
== END 2021-10-25 14:56 | disposition home or self-care (01) ==
PROVIDERS: Emergency Medicine; Emergency Provider Nurse Practitioner Critical Care Medicine; PCP Internal Medicine
DX: K57.92 Diverticulitis of intestine, part unspecified, without perforation or abscess without bleeding (principal); E87.6 Hypokalemia; N30.01 Acute cystitis with hematuria
CPT/HCPCS: 36415; 74177; 80053; 81003; 81015; 82272; 83605; 83690; 84145; 85025; 86140; 87045; 87086; 87899; 93005; 93010; 96360; 99284

== ENCOUNTER → 2022-04-11 18:23 | Outpatient (CLI) | payer OTHER, SELFPAY | PROVIDERS: PCP Internal Medicine; Visit Provider Physician Assistant | DX: J02.9 Acute pharyngitis, unspecified (principal) | CPT/HCPCS: 87070 ==

== ENCOUNTER 2022-05-31 14:30 | Emergency (ER) | payer OTHER, SELFPAY ==
[2022-05-31 14:43] VITALS: BP 163/72; PULSE 92; RESP 18; TEMP 36.9; O2SAT 98; BMI 38.9
--- NOTE | 2022-05-31 14:47 | ED.ABDPAIN ---
HPI - Abdominal Pain General Chief Complaint: Urogenital-Female Stated Complaint: thinks diverticulitis Time Seen by Provider: 05/31/22 14:38 History of Present Illness HPI narrative: 67-year-old female nonsmoker with history of diverticulitis, cystitis presents with a chief complaint of lower abdominal pain gradually worsening since yesterday. She denies runny nose, sore throat or cough. She has no shortness of breath, chest pain. She is had no fever or chills. She denies nausea, vomiting or diarrhea. She has lower abdominal pain that is worse when she moves and improves with rest. She denies any radiation of this pain. She denies dysuria, frequency or urgency. She denies constipation or diarrhea but does state that her stool seems to be not normal in appearance, perhaps slightly smaller in caliber Related Data Previous Rx's Medication Instructions Recorded fluticasone propionate 50 1 spray intranasal DAILY #16 grams 04/11/22 mcg/actuation nasal spray,suspension ciprofloxacin HCl 500 mg tablet 500 mg PO BID #20 tabs 05/31/22 (Cipro) metronidazole 500 mg tablet 500 mg PO TID #30 tabs 05/31/22 ondansetron 4 mg disintegrating 4 mg PO TID-QID PRN nausea and 05/31/22 tablet vomiting #10 tabs Allergies Allergy/AdvReac Type Severity Reaction Status Date / Time Penicillins Allergy Verified 04/11/22 18:01 Review of Systems Review of Systems Narrative: GENERAL: Denies chills, fatigue, malaise, fever, sweats. HEENT: Denies sinus pain, ear pain, sore throat, difficulty swallowing, dizziness. RESPIRATORY: Denies dyspnea, cough, wheezing, hemoptysis, sputum. CARDIOVASCULAR: Denies chest pain, palpitations, orthopnea, edema, GASTROINTESTINAL: See HPI : Denies dysuria, frequency, incontinence, hematuria, urinary retention. MUSCULOSKELETAL: denies weakness, joint pain, or bony pain SKIN: Denies rash, skin lesions, or other NEUROLOGIC: Denies weakness, headache, numbness, change in speech, confusion, seizures, incoordination. PSYCHIATRIC: No concerning psychosocial issues. 12 point review of systems is negative except for those stated above Patient History Social History Smoking Status: Never smoker Smoking Status: Never smoker Substance Use Type: does not use Exam Narrative Exam Narrative: GENERAL: [67] year old patient appears stated age. Well-developed patient, in mild distress. HEAD: Atraumatic. Normocephalic. EYES: Pupils equal round and reactive. Extraocular motions intact. No scleral icterus. No injection or drainage. ENT: Nose without bleeding, purulent drainage. Throat without erythema, tonsillar hypertrophy or exudate. Airway patent. NECK: Trachea midline. Non tender CARDIOVASCULAR: Regular rate and rhythm without murmurs, gallops, or rubs. RESPIRATORY: Clear to auscultation. Breath sounds equal bilaterally. No wheezes, rales, or rhonchi. GASTROINTESTINAL: Abdomen soft, mild lower abdominal tenderness, no rebound or guarding, nondistended. Bowel sounds present EXTREMITIES: No edema or joint tenderness. BACK: Nontender without deformity or crepitance. No flank tenderness. NEURO: AOx3. SKIN: No rash or erythema of visible areas Initial Vital Signs Initial Vital Signs: Vital Signs Temperature 98.5 F 05/31/22 14:43 Pulse Rate 92 H 05/31/22 14:43 Respiratory Rate 18 05/31/22 14:43 Blood Pressure 163/72 H 05/31/22 14:43 Pulse Oximetry 98 05/31/22 14:43 Oxygen Delivery Method Room Air 05/31/22 14:43 Course Orders Ordered: Discontinued Medications Sodium Chloride (Normal Saline 0.9%) 1,000 mls @ 1,000 mls/hr IV BOLUS ONE Stop: 05/31/22 16:00 Last Infusion: 05/31/22 16:39 Dose: 0 mls/hr Documented By: Admin: 05/31/22 15:31 Dose: 1,000 mls/hr Documented By: NR Ondansetron HCl (Ondansetron 4 Mg Odt) 4 mg SL NOW PRN PRN Reason: Nausea And Vomiting Ondansetron HCl (Ondansetron 4 Mg/2 Ml Inj) 4 mg IV NOW PRN PRN Reason: Nausea And Vomiting Vital Signs Vital signs: Vital Signs - 8 hr 05/31/22 14:43 Temperature 98.5 F Pulse Rate 92 H Respiratory Rate 18 Blood Pressure 163/72 H Pulse Oximetry 98 Oxygen Delivery Method Room Air MDM - Abdominal Pain Lab Data 05/31/22 15:04 05/31/22 15:04 Labs: Lab Results 05/31/22 05/31/22 05/31/22 Range/Units 15:04 15:04 15:04 WBC 12.4 H (4.5-11.0) X10^3/uL RBC 4.45 (4.0-5.2) X10^6/uL Hgb 12.7 (12.0-16.0) g/dL Hct 37.5 (36-46) % MCV 84.2 (80-100) fL MCH 28.6 (26-34) PG MCHC 34.0 (30-36) % RDW 14.1 (11.6-14.8) % Plt Count 248 (150-400) X10^3/uL Neut % (Auto) 67.6 (50-75) % Lymph % (Auto) 23.0 L (25-40) % Walker % (Auto) 7.5 (3-14) % Eos % (Auto) 1.3 L (2-4) % Baso % (Auto) 0.6 (0-2) % Neut # (Auto) 8400 H (2180-4416) /uL Lymph # (Auto) 2900 (1554-4907) /uL Walker # (Auto) 900 (0-900) /uL Eos # (Auto) 200 (0-450) /uL Baso # (Auto) 100 (0-100) /uL Sodium 136 L (137-145) mmol/L Potassium 3.7 (3.4-5.1) mmol/L Chloride 100 (98-107) mmol/L Carbon Dioxide 24 (22-32) mmol/L BUN 18 H (7-17) mg/dL Creatinine 0.82 (0.52-1.04) mg/dL Estimated GFR > 60 (>60) mL/min BUN/Creatinine Ratio 22.0 (6-22) Glucose 99 (80-110) mg/dL Lactate 0.9 (0.7-2.1) mmol/L Calcium 9.0 (8.4-10.2) mg/dL Magnesium 1.9 (1.6-2.3) mg/dL Total Bilirubin 0.7 (0.2-1.3) mg/dL AST 29 (14-36) IU/L ALT 24 (<35) IU/L Alkaline Phosphatase 72 (38-126) U/L Total Protein 7.6 (6.3-8.2) g/dL Albumin 4.4 (3.5-5.0) g/dL Globulin 3.2 (1.7-4.1) g/dL Albumin/Globulin Ratio 1.4 (1.0-2.8) Lipase 111 (23-300) U/L Urine RBC (0-5/HPF) Urine WBC (0-5/HPF) Ur Squamous Epith Cells (0-5/HPF) Urine Bacteria (None) Ur Culture Indicated? 05/31/22 Range/Units 16:45 WBC (4.5-11.0) X10^3/uL RBC (4.0-5.2) X10^6/uL Hgb (12.0-16.0) g/dL Hct (36-46) % MCV (80-100) fL MCH (26-34) PG MCHC (30-36) % RDW (11.6-14.8) % Plt Count (150-400) X10^3/uL Neut % (Auto) (50-75) % Lymph % (Auto) (25-40) % Walker % (Auto) (3-14) % Eos % (Auto) (2-4) % Baso % (Auto) (0-2) % Neut # (Auto) (1785-5877) /uL Lymph # (Auto) (2303-7659) /uL Walker # (Auto) (0-900) /uL Eos # (Auto) (0-450) /uL Baso # (Auto) (0-100) /uL Sodium (137-145) mmol/L Potassium (3.4-5.1) mmol/L Chloride (98-107) mmol/L Carbon Dioxide (22-32) mmol/L BUN (7-17) mg/dL Creatinine (0.52-1.04) mg/dL Estimated GFR (>60) mL/min BUN/Creatinine Ratio (6-22) Glucose (80-110) mg/dL Lactate (0.7-2.1) mmol/L Calcium (8.4-10.2) mg/dL Magnesium (1.6-2.3) mg/dL Total Bilirubin (0.2-1.3) mg/dL AST (14-36) IU/L ALT (<35) IU/L Alkaline Phosphatase (38-126) U/L Total Protein (6.3-8.2) g/dL Albumin (3.5-5.0) g/dL Globulin (1.7-4.1) g/dL Albumin/Globulin Ratio (1.0-2.8) Lipase (23-300) U/L Urine RBC None seen (0-5/HPF) Urine WBC 5-10/hpf H (0-5/HPF) Ur Squamous Epith Cells 5-10 /hpf H (0-5/HPF) Urine Bacteria Few (2-10) H (None) Ur Culture Indicated? Specimen cultured Point of care testing: Urine Dip Bedside Urine Glucose Negative Bedside Urine Bilirubin - Negative Bedside Urine Ketone +/- 5 Urine Specific [place] 1.010 Bedside Urine Occult Blood - Negative Bedside Urine pH 6.0 Bedside Urine Protein - Negative Bedside Urine Urobilinogen - Negative Bedside Urine Nitrite - Negative Bedside Urine Leukocytes + 70 Esterase MDM Narrative Medical decision making narrative: CC: 67-year-old female with lower abdominal pain since yesterday Complicating co-morbidities: Age, prior diverticulitis Data collected from: Patient Medical records reviewed: Prior notes reviewed in our EMR Differential considered, but not limited to: Diverticulitis, cystitis, bowel obstruction versus other Exam documented above, pertinent findings include: Heart rate regular, lungs clear, abdomen soft but tender in the lower abdomen, bowel sounds present Lab Test results independently reviewed as above. Pertinent findings: Mild leukocytosis of 12.4 without evidence of significant left shift or anemia, no significant electrolyte abnormalities Consultation: Discussed clinical course, labs and imaging with on-call surgery, Dr. Yancey, no need for inpatient, recommend Cipro and Flagyl, clear liquids for the next few days and strict return precautions Imaging studies independently reviewed: CT demonstrates acute sigmoid diverticulitis without evidence of perforation or abscess Treatments: Fluids and Zofran Re-evaluations: Improved after above stated Discussion: Patient with left lower quadrant pain reminiscent of prior diverticulitis. Her abdomen is soft and slightly tender, no rebound. No signs of sepsis. Pain well controlled. Minimal leukocytosis and no evidence of perforation or abscess on imaging. Pain well controlled, patient tolerating orals. Appropriate for follow-up. Strict return precautions including return for worsening pain, fever, shaking chills, vomiting or other concerning symptoms Disposition: see below, along with detailed discharge instructions that have been reviewed with patient as well as indications for ED re-evaluation and additional outpatient follow up Discharge Plan Departure Patient Disposition: Home Clinical Impression: Diverticulitis Instructions: DI for Diverticulitis Activity Restrictions/Additional Instructions: *You have been diagnosed with [abdominal pain due to diverticulitis] * As we discussed your history and physical exam as well as labs and imaging are very reassuring, and there is no indication that hospitalization is needed at this time. The CT scan does not suggest any abscess or perforation, only routine diverticulitis *What to do: *Please continue to take your regular medications as directed. [x ] New medication prescriptions sent to your pharmacy: [ [facility]] *Please follow up with your primary care provider in 2-3 days, call for an appointment. Let them know you were seen in the Emergency Department and that we ask that you be seen in follow up. We will electronically transmit a record of today's note if your PCP is in our system *Please consider a clear liquid diet for the next 24-48 hours and then slowly advance to regular as tolerated. Also, try to avoid alcohol, nicotine, caffeine, spicy, acidic or fatty foods as this may worsen your symptoms *If you do not have a primary care provider please contact the [facility] Resource line at [phone]. They will ask some questions about your medical history and help get you set up with a doctor in the community. *Return to Emergency Department if you should have any new, worsening or concerning symptoms, such as [fever greater than 101 F, shaking chills, worsening pain, persistent vomiting or other bothersome symptoms] Prescriptions: New ciprofloxacin HCl [Cipro] 500 mg tablet 500 mg PO BID Qty: 20 0RF metronidazole 500 mg tablet 500 mg PO TID Qty: 30 0RF ondansetron 4 mg tablet,disintegrating 4 mg PO TID-QID PRN (Reason: nausea and vomiting) Qty: 10 0RF No Action fluticasone propionate 50 mcg/actuation spray,suspension 1 spray intranasal DAILY Qty: 16 0RF Rx Instructions: administer into each nostril Referrals: Flores Owens MD [Primary Care Provider] - Stand Alone Forms: Patient Portal/API
--- NOTE | 2022-05-31 15:02 | DI.CT.S_ITS ---
PROCEDURE: CT ABDOMEN PELVIS W CON INDICATIONS: lower abdominal pain, similar to prior diverticulitis, but w TECHNIQUE: After the administration of oral and IV contrast, axial sections were acquired from the lung bases to the pubic symphysis. Coronal and sagittal reformats were performed. For radiation dose reduction, the following was used: automated exposure control, adjustment of mA and/or kV according to patient size. COMPARISON: [facility], CT, CT ABDOMEN PELVIS W CON, 10/25/2021, 14:04. FINDINGS: Image quality: Excellent. Lung bases: Left basilar atelectasis. Trace pleural effusions bilaterally. Heart: Small hiatal hernia. ABDOMEN: Liver: Normal size. Mild hepatic steatosis. Gallbladder: Unremarkable. Biliary ducts: Unremarkable. Pancreas: Unremarkable. Spleen: Unremarkable. Adrenal Glands: Unremarkable. Kidneys and Ureters: There is a 2 cm exophytic mildly complex cyst in the superior pole of the right kidney. Small subcentimeter cysts are also seen in left kidney. Kidneys are normal in size and symmetrical in enhancement. No stones or hydronephrosis. Stomach and Bowel: Stomach, small bowel loops, and colon are normal in caliber. Are numerous colonic diverticula. There is focal thickening and stranding in sigmoid colon consistent with acute diverticulitis. There is a small amount of free fluid in pelvis. No organized fluid collections to suggest abscess. Peritoneum: Small intraperitoneal fluid in pelvis. No free air. Ventral Wall: No hernia. Abdominal Nodes: No retroperitoneal or mesenteric adenopathy by size criteria. Vessels: Aorta and inferior vena cava are normal in size. PELVIS: Pelvic Organs: Unremarkable. Bladder: Unremarkable. Pelvic Nodes: No enlarged lymph nodes. Miscellaneous: No inguinal hernias are seen. Bones: Unremarkable. IMPRESSION: 1. Acute sigmoid diverticulitis. There is a small amount of free fluid in pelvis. No organized drainable fluid collections to suggest abscess. No free air. 2. A 2 cm complex cyst in the superior pole of the right kidney (Bosniak 2 F). Consider [address] or ultrasound follow-up. 3. Mild hepatic steatosis. 4. Trace pleural effusions bilaterally. Dictated by: Maria Guadalupe Gonzalez M.D. on 05/31/2022 at 16:28 Approved by: Maria Guadalupe Gonzalez M.D. on 05/31/2022 at 16:35
[2022-05-31 15:15] LABS: Add Manual Diff / Slide Review NO; Basophils Absolute Auto 100 /uL (0-100); Basophils Percent Auto 0.6 % (0-2); Eosinophils Absolute Auto 200 /uL (0-450); Eosinophils Percent Auto 1.3 % (2-4); Hematocrit 37.5 % (36-46); Hemoglobin 12.7 g/dL (12.0-16.0); Lymphocytes Absolute Auto 2900 /uL (1100-4500); Mean Corpuscular Hemoglobin 28.6 PG (26-34); Mean Corpuscular Volume 84.2 fL (80-100); Monocytes Absolute Auto 900 /uL (0-900); Monocytes Percent Auto 7.5 % (3-14); Neutrophils Absolute Auto 8400 /uL (1500-7000); Neutrophils Percent Auto 67.6 % (50-75); Platelet Count 248 X10^3/uL (150-400); Red Blood Cell Count 4.45 X10^6/uL (4.0-5.2); Red Cell Distribution Width 14.1 % (11.6-14.8); White Blood Cell Count 12.4 X10^3/uL (4.5-11.0)
[2022-05-31 15:24] LABS: Lactate (Lactic Acid) 0.9 mmol/L (0.7-2.1)
[2022-05-31 15:26] LABS: Alanine Aminotransferase 24 IU/L (<35); Albumin 4.4 g/dL (3.5-5.0); Albumin Globulin Ratio 1.4 (1.0-2.8); Alkaline Phosphatase 72 U/L (38-126); Aspartate Aminotransferase 29 IU/L (14-36); Bilirubin Total 0.7 mg/dL (0.2-1.3); Blood Urea Nitrogen 18 mg/dL (7-17); Carbon Dioxide 24 mmol/L (22-32); Chloride 100 mmol/L (98-107); Estimated Glomerular Filt Rate > 60 mL/min (>60); Globulin 3.2 g/dL (1.7-4.1); Glucose 99 mg/dL (80-110); HEMOLYSIS < 15 (0-50); Lipase 111 U/L (23-300); Magnesium 1.9 mg/dL (1.6-2.3); Potassium 3.7 mmol/L (3.4-5.1); Sodium 136 mmol/L (137-145); Total Protein 7.6 g/dL (6.3-8.2)
[2022-05-31] MEDS: SODIUM CHLORIDE 0.9% 1,000 ML 1000 ML IV (15:31)
[2022-05-31 17:15] LABS: Bacteria Urine Few (2-10); Culture Indicated Urine Specimen Cultured; RBC Urine None Seen (0-5/HPF); Squamous Epithelial Cell Urine 5-10 /HPF (0-5/HPF); WBC Urine 5-10/HPF (0-5/HPF)
[2022-05-31 17:46] VITALS: BP 182/86; PULSE 87; RESP 18; O2SAT 100
== END 2022-05-31 17:53 | disposition home or self-care (01) ==
PROVIDERS: Emergency Provider Emergency Medicine; PCP Internal Medicine
DX: K57.92 Diverticulitis of intestine, part unspecified, without perforation or abscess without bleeding (principal)
CPT/HCPCS: 36415; 74177; 80053; 81003; 81015; 83605; 83690; 83735; 85025; 87086; 99284; Q9967

== ENCOUNTER 2022-07-18 11:36 | Emergency (ER) | payer BC, SELFPAY ==
[2022-07-18] VITALS (13 sets, daily range): BP systolic 137–149; BP diastolic 65–84; PULSE 60–82; RESP 15; TEMP 36.2; O2SAT 95–98; BMI 38.9
[2022-07-18 11:56] LABS: Appearance Urine UA SL CLOUDY; Bilirubin Urine UA 1+ (NEGATIVE); Color Urine UA YELLOW; Glucose Urine UA NEGATIVE (Negative); Ketones Urine UA NEGATIVE (NEGATIVE); Leukocyte Esterase Urine UA 1+ (NEGATIVE); Nitrite Urine UA NEGATIVE (Negative); Occult Blood Urine UA NEGATIVE (Negative); Protein Urine UA 1+ (Negative); Specific Gravity Urine UA 1.025 (1.000-1.035)
[2022-07-18 12:10] LABS: Add Manual Diff / Slide Review NO; Basophils Absolute Auto 100 /uL (0-100); Basophils Percent Auto 0.9 % (0-2); Eosinophils Absolute Auto 200 /uL (0-450); Eosinophils Percent Auto 2.2 % (2-4); Hematocrit 38.3 % (36-46); Lymphocytes Absolute Auto 2500 /uL (1100-4500); Lymphocytes Percent Auto 28.6 % (25-40); Mean Corpuscular HGB Conc 33.9 % (30-36); Mean Corpuscular Hemoglobin 28.5 PG (26-34); Monocytes Absolute Auto 600 /uL (0-900); Monocytes Percent Auto 7.1 % (3-14); Neutrophils Absolute Auto 5500 /uL (1500-7000); Neutrophils Percent Auto 61.2 % (50-75); Platelet Count 259 X10^3/uL (150-400); Red Blood Cell Count 4.57 X10^6/uL (4.0-5.2); Red Cell Distribution Width 14.3 % (11.6-14.8); White Blood Cell Count 8.9 X10^3/uL (4.5-11.0)
[2022-07-18 12:11] LABS: Bacteria Urine Few (2-10); Culture Indicated Urine Specimen Cultured; Ictotest Urine Negative (Negative); RBC Urine None Seen (0-5/HPF); Squamous Epithelial Cell Urine 5-10 /HPF (0-5/HPF); WBC Urine 5-10/HPF (0-5/HPF)
[2022-07-18 12:12] LABS: Alanine Aminotransferase 25 IU/L (<35); Albumin 4.5 g/dL (3.5-5.0); Albumin Globulin Ratio 1.4 (1.0-2.8); Alkaline Phosphatase 72 U/L (38-126); Aspartate Aminotransferase 29 IU/L (14-36); BUN Creatinine Ratio 26.5 (6-22); Bilirubin Total 0.5 mg/dL (0.2-1.3); Blood Urea Nitrogen 22 mg/dL (7-17); Calcium 9.8 mg/dL (8.4-10.2); Carbon Dioxide 29 mmol/L (22-32); Chloride 99 mmol/L (98-107); Estimated Glomerular Filt Rate > 60 mL/min (>60); Globulin 3.2 g/dL (1.7-4.1); Glucose 113 mg/dL (80-110); HEMOLYSIS < 15 (0-50); Lipase 174 U/L (23-300); Potassium 3.2 mmol/L (3.4-5.1); Sodium 137 mmol/L (137-145); Total Protein 7.7 g/dL (6.3-8.2)
--- NOTE | 2022-07-18 14:48 | DI.CT.S_ITS ---
PROCEDURE: CT ABDOMEN PELVIS W CON INDICATIONS: RLQ pain TECHNIQUE: After the administration of intravenous contrast, axial sections acquired from the lung bases to the pubic symphysis. Coronal and sagittal reformats were performed. For radiation dose reduction, the following was used: automated exposure control, adjustment of mA and/or kV according to patient size. COMPARISON: [facility], CT, CT ABDOMEN PELVIS W CON, 05/31/2022, 15:33. [facility], CT, CT ABDOMEN PELVIS W CON, 10/25/2021, 14:04. FINDINGS: Image quality: Excellent. Lung bases: Unremarkable. Heart: No significant findings. ABDOMEN: Liver: Unremarkable. Gallbladder: Unremarkable. Biliary ducts: Unremarkable. Pancreas: Unremarkable. Spleen: Unremarkable. Adrenal Glands: Unremarkable. Kidneys and Ureters: Lobular exophytic cyst seen at the superior pole of the right kidney that appears unchanged. Multiple parapelvic left renal cysts. No hydronephrosis. Stomach and Bowel: Small hiatal hernia. Multiple diverticula are seen in the colon without signs of acute diverticulitis. Normal retrocecal appendix. No signs of bowel obstruction. Peritoneum: No abnormal intraperitoneal fluid. No free air. Focal nonspecific fat stranding is seen in the right upper quadrant adjacent to the hepatic flexure of the colon and the inferior right hepatic lobe. Ventral Wall: Small fat containing periumbilical hernia. Abdominal Nodes: No retroperitoneal or mesenteric adenopathy by size criteria. Vessels: Aorta and inferior vena cava are normal in size. PELVIS: Pelvic Organs: Status post hysterectomy. Bladder: Unremarkable. Pelvic Nodes: No enlarged lymph nodes. Miscellaneous: No hernias are seen. Bones: Degenerative changes are seen in the spine and pubic symphysis. IMPRESSION: 1. Focal nonspecific fat stranding in the anterior upper quadrant adjacent to the hepatic flexure of the colon and the inferior right hepatic lobe. Findings may represent focal fat necrosis/omental infarct versus less likely focal colitis or a soft tissue contusion if there has been recent trauma. 2. Colonic diverticulosis without signs of acute diverticulitis. Normal retrocecal appendix. 3. Stable complex 2 cm right superior pole renal cyst. Recommend follow-up as suggested on the prior CT. Approved by: Kailash Keane M.D. on 07/18/2022 at 16:09
--- NOTE | 2022-07-18 14:49 | ED_ITS ---
HPI - Abdominal Pain <Cristiana Vera PA-C - Last Filed: 07/18/22 17:00> General Chief Complaint: Abdominal Pain Stated Complaint: Rside pain t-2; appendicitis Time Seen by Provider: 07/18/22 14:34 Source: patient Mode of arrival: Ambulatory History of Present Illness HPI narrative: 67-year-old female with past medical history diverticulitis, on chronic immunosuppression for vascular/inflammatory plaque presents to the ED with 4 days of right lower quadrant pain. Patient denies fevers, endorses some chills last night. Patient denies chest pain, shortness of breath, nausea, vomiting. Patient's last bowel movement was this morning and it was normal. Patient denies dysuria, urinary frequency, urinary urgency, flank pain. Patient has had a partial hysterectomy, but no other abdominal surgeries. Related Data Previous Rx's Medication Instructions Recorded fluticasone propionate 50 1 spray intranasal DAILY #16 grams 04/11/22 mcg/actuation nasal spray,suspension ciprofloxacin HCl 500 mg tablet 500 mg PO BID #20 tabs 05/31/22 (Cipro) metronidazole 500 mg tablet 500 mg PO TID #30 tabs 05/31/22 ondansetron 4 mg disintegrating 4 mg PO TID-QID PRN nausea and 05/31/22 tablet vomiting #10 tabs cefpodoxime 200 mg tablet 200 mg PO Q12H 10 days #20 tabs 07/18/22 Allergies Allergy/AdvReac Type Severity Reaction Status Date / Time Penicillins Allergy Verified 07/18/22 11:39 Review of Systems <Cristiana Vera PA-C - Last Filed: 07/18/22 17:00> Review of Systems ROS Unobtainable: All systems reviewed & are unremarkable except as noted in HPI and below Constitutional Constitutional: Reports chills, Denies fatigue, Denies fever(s), Denies frequent falls, Denies lethargy and Denies weakness Eyes Eyes: Denies change in vision, Denies eye discharge, Denies irritation and Denies loss of vision ENT Ears, Nose, Mouth, and Throat: Denies change in voice, Denies dizziness, Denies neck pain, Denies sore throat and Denies throat swelling Cardiovascular Cardiovascular: Denies chest pain, Denies irregular heart rhythm, Denies lightheadedness, Denies palpitations, Denies dyspnea, Denies dyspnea on exertion and Denies orthopnea Respiratory Respiratory: Denies cough, Denies dyspnea, Denies dyspnea on exertion and Denies wheezing Gastrointestinal Gastrointestinal: Reports abdominal pain, Denies change in bowel habits, Denies diarrhea, Denies nausea and Denies vomiting Genitourinary Genitourinary: Denies hematuria, Denies flank pain, Denies urinary incontinence and Denies urinary urgency Musculoskeletal Musculoskeletal: Denies back pain, Denies muscle weakness, Denies neck pain, Denies numbness and Denies tingling Integumentary/Breasts Skin/Breast: Denies pruritus, Denies erythema, Denies rash and Denies wounds Neurologic Neurologic: Denies behavioral changes, Denies confusion, Denies dizziness, Denies frequent falls, Denies loss of vision, Denies numbness, Denies tingling and Denies weakness Psychiatric Psychiatric: Denies anxiety, Denies behavioral changes, Denies confusion, Denies depression, Denies homicidal ideation and Denies suicidal ideation Endocrine Endocrine: Denies fatigue, Denies flushing and Denies palpitations Hematologic/Lymphatic Hematologic/Lymphatic: Denies easy bruising Allergic/Immunologic Allergic/Immunologic: Denies urticaria, Denies throat swelling and Denies wheezing Patient History <Cristiana Vera PA-C - Last Filed: 07/18/22 17:00> Social History Smoking Status: Never smoker Smoking Status: Never smoker alcohol intake frequency: holidays/special occasions only Substance Use Type: does not use Exam <Cristiana Vera PA-C - Last Filed: 07/18/22 17:00> Narrative Exam Narrative: Const General:?cooperative, healthy appearing and comfortable [facility] Head:?normal to inspection Ears:?hearing grossly normal bilaterally Nose:?external nose normal Face and sinus:?normal facial exam and sinuses nontender Mouth:?oral mucosae normal Throat:?posterior oropharynx normal Eyes General:?appearance normal, both eyes and all related structures Neck Neck:?normal visual inspection and no lymphadenopathy noted Resp Effort & Inspection:?normal respiratory effort Auscultation:?clear to auscultation bilaterally Cardio Rate:?regular rate Rhythm:?regular rhythm GI Abdomen is soft, nondistended, exquisite tender to palpation in the right lower quadrant. There is no CVA tenderness. Neuro General:?patient alert, patient awake and patient oriented x3 Initial Vital Signs Initial Vital Signs: Vital Signs Temperature 97.2 F L 07/18/22 11:39 Pulse Rate 82 07/18/22 11:39 Respiratory Rate 15 07/18/22 11:39 Blood Pressure 140/76 07/18/22 11:39 Pulse Oximetry 95 07/18/22 11:39 Oxygen Delivery Method Room Air 07/18/22 11:39 <Ekta Gomez DO - Last Filed: 07/18/22 20:53> Initial Vital Signs Initial Vital Signs: Vital Signs Temperature 97.2 F L 07/18/22 11:39 Pulse Rate 82 07/18/22 11:39 Respiratory Rate 15 07/18/22 11:39 Blood Pressure 140/76 07/18/22 11:39 Pulse Oximetry 95 07/18/22 11:39 Oxygen Delivery Method Room Air 07/18/22 11:39 Course <Cristiana Vera PA-C - Last Filed: 07/18/22 17:00> Orders Ordered: ED Orders 07/18/22 14:48 CT abdomen pelvis w con Stat Discontinued Medications Ketorolac Tromethamine (Ketorolac 30 Mg/Ml Vial) 15 mg IV NOW ONE Stop: 07/18/22 14:49 Last Admin: 07/18/22 14:52 Dose: 15 mg Documented By: PIETRO Ondansetron HCl (Ondansetron 4 Mg/2 Ml Inj) 4 mg IV NOW PRN PRN Reason: Nausea And Vomiting Last Admin: 07/18/22 14:52 Dose: 4 mg Documented By: PIETRO Vital Signs Vital signs: Vital Signs - 8 hr 07/18/22 13:00 07/18/22 13:00 07/18/22 13:30 Pulse Rate 72 60 Blood Pressure 146/84 H Pulse Oximetry 97 97 07/18/22 13:31 07/18/22 13:31 07/18/22 14:00 Pulse Rate 63 Blood Pressure 137/65 146/72 H Pulse Oximetry 97 07/18/22 14:00 07/18/22 14:30 07/18/22 14:30 Pulse Rate 60 67 Blood Pressure 144/69 H Pulse Oximetry 98 98 07/18/22 15:49 07/18/22 15:51 07/18/22 15:51 Pulse Rate 60 69 Blood Pressure 140/66 Pulse Oximetry 95 96 07/18/22 16:00 07/18/22 16:00 07/18/22 16:30 Pulse Rate 70 Blood Pressure 148/68 H 139/71 Pulse Oximetry 95 07/18/22 16:30 Pulse Rate 70 Blood Pressure Pulse Oximetry 96 <Ekta Gomez DO - Last Filed: 07/18/22 20:53> Orders Ordered: ED Orders 07/18/22 14:48 CT abdomen pelvis w con Stat Discontinued Medications Ketorolac Tromethamine (Ketorolac 30 Mg/Ml Vial) 15 mg IV NOW ONE Stop: 07/18/22 14:49 Last Admin: 07/18/22 14:52 Dose: 15 mg Documented By: PIETRO Ondansetron HCl (Ondansetron 4 Mg/2 Ml Inj) 4 mg IV NOW PRN PRN Reason: Nausea And Vomiting Last Admin: 07/18/22 14:52 Dose: 4 mg Documented By: PIETRO Vital Signs Vital signs: Vital Signs - 8 hr 07/18/22 13:00 07/18/22 13:00 07/18/22 13:30 Pulse Rate 72 60 Blood Pressure 146/84 H Pulse Oximetry 97 97 07/18/22 13:31 07/18/22 13:31 07/18/22 14:00 Pulse Rate 63 Blood Pressure 137/65 146/72 H Pulse Oximetry 97 07/18/22 14:00 07/18/22 14:30 07/18/22 14:30 Pulse Rate 60 67 Blood Pressure 144/69 H Pulse Oximetry 98 98 07/18/22 15:49 07/18/22 15:51 07/18/22 15:51 Pulse Rate 60 69 Blood Pressure 140/66 Pulse Oximetry 95 96 07/18/22 16:00 07/18/22 16:00 07/18/22 16:30 Pulse Rate 70 Blood Pressure 148/68 H 139/71 Pulse Oximetry 95 07/18/22 16:30 Pulse Rate 70 Blood Pressure Pulse Oximetry 96 MDM - Abdominal Pain <Cristiana Vera PA-C - Last Filed: 07/18/22 17:00> Lab Data 07/18/22 11:06 07/18/22 11:06 Labs: Lab Results 07/18/22 07/18/22 07/18/22 Range/Units 11:06 11:06 11:45 WBC 8.9 (4.5-11.0) X10^3/uL RBC 4.57 (4.0-5.2) X10^6/uL Hgb 13.0 (12.0-16.0) g/dL Hct 38.3 (36-46) % MCV 84.0 (80-100) fL MCH 28.5 (26-34) PG MCHC 33.9 (30-36) % RDW 14.3 (11.6-14.8) % Plt Count 259 (150-400) X10^3/uL Neut % (Auto) 61.2 (50-75) % Lymph % (Auto) 28.6 (25-40) % [place] % (Auto) 7.1 (3-14) % Eos % (Auto) 2.2 (2-4) % Baso % (Auto) 0.9 (0-2) % Neut # (Auto) 5500 (7624-4732) /uL Lymph # (Auto) 2500 (7209-2262) /uL [place] # (Auto) 600 (0-900) /uL Eos # (Auto) 200 (0-450) /uL Baso # (Auto) 100 (0-100) /uL Sodium 137 (137-145) mmol/L Potassium 3.2 L (3.4-5.1) mmol/L Chloride 99 (98-107) mmol/L Carbon Dioxide 29 (22-32) mmol/L BUN 22 H (7-17) mg/dL Creatinine 0.83 (0.52-1.04) mg/dL Estimated GFR > 60 (>60) mL/min BUN/Creatinine Ratio 26.5 H (6-22) Glucose 113 H (80-110) mg/dL Calcium 9.8 (8.4-10.2) mg/dL Total Bilirubin 0.5 (0.2-1.3) mg/dL AST 29 (14-36) IU/L ALT 25 (<35) IU/L Alkaline Phosphatase 72 (38-126) U/L Total Protein 7.7 (6.3-8.2) g/dL Albumin 4.5 (3.5-5.0) g/dL Globulin 3.2 (1.7-4.1) g/dL Albumin/Globulin Ratio 1.4 (1.0-2.8) Lipase 174 (23-300) U/L Urine Color Yellow Urine Appearance Sl cloudy Urine pH 6.0 (4.5-8.0) Ur Specific [place] 1.025 (1.000-1.035) Urine Protein 1+ H (Negative) Urine Glucose (UA) Negative (Negative) g/dL Urine Ketones Negative (NEGATIVE) Urine Occult Blood Negative (Negative) Urine Nitrate Negative (Negative) Urine Bilirubin 1+ H (NEGATIVE) Ur Bilirubin Confirm Negative (Negative) Urine Urobilinogen 1.0 (0.2) E.U./dL Ur Leukocyte Esterase 1+ H (NEGATIVE) Urine RBC None seen (0-5/HPF) Urine WBC 5-10/hpf H (0-5/HPF) Ur Squamous Epith Cells 5-10 /hpf H (0-5/HPF) Urine Bacteria Few (2-10) H (None) Ur Culture Indicated? Specimen cultured MDM Narrative Medical decision making narrative: 67-year-old female with past medical history diverticulitis, on chronic immunosuppression for vascular/inflammatory plaque presents to the ED with 4 days of right lower quadrant pain. Concern for appendicitis versus diverticulitis versus UTI versus pyelonephritis versus other intra-abdominal pathology versus other. Will obtain labs, UA, CT abdomen pelvis. Will give ketorolac for pain. NPO. Labs within normal limits. UA is positive for UTI with positive leukocyte esterase, positive urine WBC. CT abdomen pelvis shows some focal nonspecific fat stranding in the anterior upper quadrant adjacent to the hepatic flexure of the colon as inferior right hepatic lobe. The findings may represent focal fat necrosis/omental infarct versus less likely local colitis or a soft tissue contusion. Dr. Lepe from surgery was consulted, she confirms that it is epiploic appendagitis that is a benign condition, requiring on the pain medication and no other intervention at this time. The condition runs for 7-10 days. Discussed findings with patient. Prescribed antibiotics for the UTI. ED return precautions were discussed with patient. Patient verbalized understanding. Medical records reviewed: Yes <Ekta Gomez, - Last Filed: 07/18/22 20:53> Lab Data Labs: Lab Results 07/18/22 07/18/22 07/18/22 Range/Units 11:06 11:06 11:45 WBC 8.9 (4.5-11.0) X10^3/uL RBC 4.57 (4.0-5.2) X10^6/uL Hgb 13.0 (12.0-16.0) g/dL Hct 38.3 (36-46) % MCV 84.0 (80-100) fL MCH 28.5 (26-34) PG MCHC 33.9 (30-36) % RDW 14.3 (11.6-14.8) % Plt Count 259 (150-400) X10^3/uL Neut % (Auto) 61.2 (50-75) % Lymph % (Auto) 28.6 (25-40) % [place] % (Auto) 7.1 (3-14) % Eos % (Auto) 2.2 (2-4) % Baso % (Auto) 0.9 (0-2) % Neut # (Auto) 5500 (5344-4328) /uL Lymph # (Auto) 2500 (7415-4305) /uL [place] # (Auto) 600 (0-900) /uL Eos # (Auto) 200 (0-450) /uL Baso # (Auto) 100 (0-100) /uL Sodium 137 (137-145) mmol/L Potassium 3.2 L (3.4-5.1) mmol/L Chloride 99 (98-107) mmol/L Carbon Dioxide 29 (22-32) mmol/L BUN 22 H (7-17) mg/dL Creatinine 0.83 (0.52-1.04) mg/dL Estimated GFR > 60 (>60) mL/min BUN/Creatinine Ratio 26.5 H (6-22) Glucose 113 H (80-110) mg/dL Calcium 9.8 (8.4-10.2) mg/dL Total Bilirubin 0.5 (0.2-1.3) mg/dL AST 29 (14-36) IU/L ALT 25 (<35) IU/L Alkaline Phosphatase 72 (38-126) U/L Total Protein 7.7 (6.3-8.2) g/dL Albumin 4.5 (3.5-5.0) g/dL Globulin 3.2 (1.7-4.1) g/dL Albumin/Globulin Ratio 1.4 (1.0-2.8) Lipase 174 (23-300) U/L Urine Color Yellow Urine Appearance Sl cloudy Urine pH 6.0 (4.5-8.0) Ur Specific [place] 1.025 (1.000-1.035) Urine Protein 1+ H (Negative) Urine Glucose (UA) Negative (Negative) g/dL Urine Ketones Negative (NEGATIVE) Urine Occult Blood Negative (Negative) Urine Nitrate Negative (Negative) Urine Bilirubin 1+ H (NEGATIVE) Ur Bilirubin Confirm Negative (Negative) Urine Urobilinogen 1.0 (0.2) E.U./dL Ur Leukocyte Esterase 1+ H (NEGATIVE) Urine RBC None seen (0-5/HPF) Urine WBC 5-10/hpf H (0-5/HPF) Ur Squamous Epith Cells 5-10 /hpf H (0-5/HPF) Urine Bacteria Few (2-10) H (None) Ur Culture Indicated? Specimen cultured Discharge Plan Departure Patient Disposition: Home Clinical Impression: Epiploic appendagitis Instructions: DI for Abdominal Pain-Adult Activity Restrictions/Additional Instructions: You were evaluated in the ED today for abdominal pain. Your labs were normal. Your CT abdomen pelvis shows epiploic appendagitis which is a benign condition for which no intervention is needed at this point other than pain control with Tylenol. Your urine was positive for a UTI for which you are being prescribed an antibiotic. Please complete the antibiotic as prescribed. Please follow-up with your PCP as soon as possible. Return to the ED if you have worsening abdominal pain, fever, chills, persistent vomiting. Prescriptions: New cefpodoxime 200 mg tablet 200 mg PO Q12H 10 Days Qty: 20 0RF Rx Instructions: must administer with a meal/food No Action fluticasone propionate 50 mcg/actuation spray,suspension 1 spray intranasal DAILY Qty: 16 0RF Rx Instructions: administer into each nostril ciprofloxacin HCl [Cipro] 500 mg tablet 500 mg PO BID Qty: 20 0RF metronidazole 500 mg tablet 500 mg PO TID Qty: 30 0RF ondansetron 4 mg tablet,disintegrating 4 mg PO TID-QID PRN (Reason: nausea and vomiting) Qty: 10 0RF Referrals: Flores Owens MD [Primary Care Provider] - Stand Alone Forms: Patient Portal/API <Ekta Gomez DO - Last Filed: 07/18/22 20:53> Cosign ED Attending Cosignature Attestation: I was immediately available in the department for consultation. Documentation has been reviewed.
[2022-07-18] MEDS: KETOROLAC 30 MG/ML VIAL 15 MG IV (14:52)
[2022-07-18] MEDS: ONDANSETRON 4 MG/2 ML INJ IV (14:52)
== END 2022-07-18 16:54 | disposition home or self-care (01) ==
PROVIDERS: Emergency Medicine; Emergency Provider Student in an Organized Health Care Education/Training Program; PCP Internal Medicine
DX: K63.89 Other specified diseases of intestine (principal)
CPT/HCPCS: 36415; 74177; 80053; 81001; 83690; 85025; 87086; 96374; 96375; 99284; J1885; J2405; Q9967

== ENCOUNTER → 2023-02-06 12:49 | Outpatient (CLI) | payer BC, SELFPAY ==
--- NOTE | 2023-02-06 12:51 | DI.RAD.S_ITS ---
PROCEDURE: XR FOOT LT MIN 3V INDICATIONS: Left foot pain TECHNIQUE: 3 views of the foot were acquired. COMPARISON: None. FINDINGS: Bones: No displaced fracture. No dislocation. Irregular appearance of the os trigonum on lateral view. Soft tissues: No suspicious calcifications. IMPRESSION: No acute radiographic abnormality. If there is high concern for further derangement, consider MRI evaluation. Irregular appearance os trigonum on lateral view, correlate with any symptoms, this may be incidental. Dictated by: Jcarlos Keenan M.D. on 02/06/2023 at 16:22 Approved by: Jcarlos Keenan M.D. on 02/06/2023 at 16:24
[2023-02-06 14:42] LABS: Uric Acid 9.2 mg/dL (2.5-6.2)
== END ==
PROVIDERS: PCP Internal Medicine; Referring Provider Nurse Practitioner Family; Visit Provider Nurse Practitioner Family
DX: M79.672 Pain in left foot (principal)
CPT/HCPCS: 36415; 73630; 84550

== ENCOUNTER → 2023-03-19 10:27 | Outpatient (CLI) | payer BC, SELFPAY | PROVIDERS: PCP Internal Medicine; Visit Provider Nurse Practitioner Family | DX: R30.0 Dysuria (principal) | CPT/HCPCS: 87077; 87086; 87186 ==

== ENCOUNTER → 2023-06-22 15:50 | Outpatient (CLI) | payer BC, SELFPAY ==
--- NOTE | 2023-06-22 15:52 | DI.MRI.S_ITS ---
PROCEDURE: MR HEAD/BRAIN WO CON INDICATIONS: ABNORMAL BRAIN MRI TECHNIQUE: Non-contrast axial T1 spin echo, axial T2 fast spin echo, sagittal and axial FLAIR, coronal T2 fast spin echo, axial gradient echo, axial diffusion and ADC through the brain. COMPARISON: No prior brain MRI studies are available for review at the time of this dictation FINDINGS: Image quality: Excellent. CSF spaces: Ventricles appear symmetric in size and shape. Basal cisterns are patent. No extra-axial fluid collections. Brain: No intracranial bleeds or mass effects. There is cerebral volume loss for age. Several foci of T2 weighted hyperintensity can be seen within the periventricular deep white matter. There is minimal involvement of the anterior aspect of the corpus callosum.. Brainstem appears normal. Diffusion-weighted images show no acute infarct. No chronic ischemic insults. Normal intravascular flow voids are present. Skull and face: Calvarial bone marrow is normal in signal. Orbits are normal. Incidental note is made of hyperostosis frontalis. This is not considered to be pathologic in a woman of this age. Sinuses: Bvnf-ls-bydufwhl mucosal thickening can be seen involving the inferior maxillary sinuses. Sinuses and mastoids are otherwise clear. IMPRESSION: No significant abnormality can be seen for age. To the limits of this noncontrast study, no findings masses or mass effect can be seen. Age-appropriate brain parenchymal volume loss can be seen. There are scattered foci of T2 weighted hyperintensity seen within the white matter. In a patient this age, these are statistically most likely related to chronic small vessel ischemic change. Dictated by: James Scott M.D. on 06/22/2023 at 16:59 Approved by: James Scott M.D. on 06/22/2023 at 17:01
== END ==
PROVIDERS: PCP Internal Medicine; Referring Provider Psychiatry & Neurology Neurology; Visit Provider Psychiatry & Neurology Neurology
DX: R90.89 Other abnormal findings on diagnostic imaging of central nervous system (principal)
CPT/HCPCS: 70551

== ENCOUNTER → 2024-04-10 17:54 | Outpatient (CLI) | payer BC, SELFPAY ==
--- NOTE | 2024-04-10 17:56 | DI.MG.S_ITS ---
MM screening mammo BI: 04/10/2024. BI-RADS: 1 CLINICAL: 69-year old female for bilateral screening mammogram. Tyrer-Cuzick lifetime risk of 2.9%. No personal or first-degree family history of breast cancer. PRIOR EXAMS 08/04/2021, 06/16/2021. MAMMOGRAPHY TECHNIQUE: 2D and 3D (tomosynthesis) digital mammographic views obtained, with additional images as needed for full coverage. Current study was also evaluated with a Computer Aided Detection (CAD) system. DENSITY A. The breasts are almost entirely fatty. MAMMOGRAPHY FINDINGS Bilateral: No suspicious mass, asymmetry, microcalcification, or other abnormality seen. IMPRESSION: * No evidence of malignancy. RECOMMENDATIONS Bilateral * Annual screening mammography. OVERALL ASSESSMENT CATEGORY BI-RADS-1: Negative. [employer] recommends annual screening mammography beginning at age 40 for women with average risk of breast cancer. ELECTRONICALLY SIGNED: Simone Decker M.D. on 04/11/2024 at 08:07:31 AM PT Interpreting Station ID: [id number]
== END ==
PROVIDERS: PCP Internal Medicine; Referring Provider Internal Medicine; Visit Provider Internal Medicine
DX: Z12.31 Encounter for screening mammogram for malignant neoplasm of breast (principal); R92.313 Mammographic fatty tissue density, bilateral breasts
CPT/HCPCS: 77063; 77067

== ENCOUNTER → 2024-08-20 12:59 | Outpatient (CLI) | payer BC, SELFPAY ==
[2024-08-20 13:45] LABS: Add Manual Diff / Slide Review NO; Hematocrit 37.4 % (36-46); Hemoglobin 12.4 g/dL (12.0-16.0); Lymphocytes Absolute Auto 2800 /uL (1100-4500); Mean Corpuscular HGB Conc 33.2 % (30-36); Mean Corpuscular Hemoglobin 28.1 PG (26-34); Mean Corpuscular Volume 84.7 fL (80-100); Platelet Count 283 X10^3/uL (150-400)
[2024-08-20 13:58] LABS: Uric Acid 7.9 mg/dL (2.5-6.2)
[2024-08-20 14:01] LABS: Cholesterol 181 mg/dL (140-199); HDL Cholesterol 54 mg/dL (40-60); Magnesium 1.6 mg/dL (1.6-2.3); Triglycerides 189 mg/dL (35-150)
[2024-08-20 14:29] LABS: TSH w/ Reflex to FT4 < 0.02 uIU/mL (0.47-4.68)
[2024-08-20 14:54] LABS: Free T4, Direct Thyroxine 0.93 ng/dL (0.78-2.19)
[2024-08-20 15:41] LABS: Vitamin D 25 Hydroxy (D3) 51.6 ng/mL (30.0-100.0)
== END ==
PROVIDERS: PCP Internal Medicine; Referring Provider Physician Assistant; Visit Provider Physician Assistant
DX: M10.9 Gout, unspecified (principal)
CPT/HCPCS: 36415; 80061; 82306; 83735; 84439; 84443; 84550; 85025; 85651

== ENCOUNTER → 2024-11-19 14:07 | Outpatient (CLI) | payer BC, SELFPAY ==
--- NOTE | 2024-11-19 14:12 | DI.RAD.S_ITS ---
PROCEDURE: XR FOOT RT MIN 3V INDICATIONS: Foot pain no trauma TECHNIQUE: 3 views of the foot were acquired. COMPARISON: [facility], CR, XR FOOT LT MIN 3V, 02/06/2023, 13:22. FINDINGS: Bones: No fractures or dislocations. No suspicious bony lesions. Generalized degenerative changes are seen, which are worst along the Lisfranc joint. Incidental note is made of an accessory ossicle, an os trigonum. Soft tissues: Distal soft tissue swelling is seen. IMPRESSION: Soft tissue swelling is seen, without an acute bony abnormality seen by plain film. If there is point tenderness (or other clinical suspicion for a fracture not seen on these images) then a dedicated CT or a short-term followup plain film series could be considered for further evaluation, as clinically appropriate. Degenerative changes are seen, which are worst along the Lisfranc joint. Dictated by: James Scott M.D. on 11/20/2024 at 11:08 Approved by: James Scott M.D. on 11/20/2024 at 11:09
== END ==
PROVIDERS: PCP Family Medicine; Referring Provider Nurse Practitioner Family; Visit Provider Nurse Practitioner Family
DX: M79.671 Pain in right foot (principal); M79.89 Other specified soft tissue disorders; M19.071 Primary osteoarthritis, right ankle and foot
CPT/HCPCS: 73630

== ENCOUNTER 2024-11-21 18:51 | Emergency (ER) | payer BC, SELFPAY ==
[2024-11-21] VITALS (8 sets, daily range): BP systolic 178–201; BP diastolic 80–99; PULSE 73–87; RESP 16–18; TEMP 36.9; O2SAT 95–97; BMI 42.4
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
--- NOTE | 2024-11-21 19:55 | DI.CT.S_ITS ---
PROCEDURE: CT LE RT W CON INDICATIONS: foot pain, redness, swelling TECHNIQUE: After the administration of intravenous contrast, 3 mm axial sections acquired of the right foot and ankle , with coronal and sagittal reformats. COMPARISON: None. FINDINGS: No fracture or bone erosion. Joint spacing and alignment are normal. Small plantar calcaneal and Achilles enthesophytes. No joint effusion. Mild subcutaneous edema along the foot. No discrete fluid collection. No soft tissue gas or foreign body. Muscles and tendons are unremarkable within the limitations of CT. IMPRESSION: Nonspecific subcutaneous edema which could represent cellulitis in the clinical setting of infection. No evidence of osteomyelitis or abscess. Dictated by: Sher Connolly M.D. on 11/21/2024 at 20:59 Approved by: Sher Connolly M.D. on 11/21/2024 at 21:03
[2024-11-21] MEDS: ACETAMINOPHEN 325 MG TABLET 650 MG PO (20:03)
[2024-11-21 20:52] LABS: Add Manual Diff / Slide Review NO; Hematocrit 37.5 % (36-46); Hemoglobin 12.5 g/dL (12.0-16.0); Lymphocytes Absolute Auto 2400 /uL (1100-4500); Mean Corpuscular HGB Conc 33.3 % (30-36); Mean Corpuscular Hemoglobin 27.7 PG (26-34); Mean Corpuscular Volume 83.1 fL (80-100); Platelet Count 280 X10^3/uL (150-400)
[2024-11-21 21:03] LABS: Alanine Aminotransferase 30 IU/L (<35); Albumin 4.4 g/dL (3.5-5.0); Albumin Globulin Ratio 1.4 (1.0-2.8); Alkaline Phosphatase 84 U/L (38-126); Blood Urea Nitrogen 19 mg/dL (7-17); Calcium 9.4 mg/dL (8.4-10.2); Carbon Dioxide 27 mmol/L (22-32); Chloride 103 mmol/L (98-107); Estimated Glomerular Filt Rate > 60 mL/min (>60); Globulin 3.2 g/dL (1.7-4.1); Glucose 95 mg/dL (70-99); HEMOLYSIS < 15 (0-50); Lactate (Lactic Acid) 0.8 mmol/L (0.7-2.1); Potassium 3.5 mmol/L (3.4-5.1); Sodium 138 mmol/L (137-145); Total Protein 7.6 g/dL (6.3-8.2)
[2024-11-21] MEDS: DOXYCYCLINE HYCLATE 100 MG TABLET PO (22:09)
== END 2024-11-21 22:28 | disposition home or self-care (01) ==
PROVIDERS: Emergency Provider Emergency Medicine; PCP Family Medicine
DX: L03.115 Cellulitis of right lower limb (principal)
CPT/HCPCS: 36415; 73701; 80053; 83605; 85025; 87040; 99283; 99284; Q9967

== ENCOUNTER 2024-12-27 14:30 | Emergency (ER) | payer BC, SELFPAY ==
[2024-12-27 15:04] VITALS: BP 150/82; PULSE 70; RESP 18; TEMP 37.1; O2SAT 96; BMI 41.5
--- NOTE | 2024-12-27 19:18 | ED_ITS ---
HPI - Extremity Problem General Chief complaint: Extremity Problem,Nontraumatic Stated complaint: Possible infection in R Foot Time Seen by Provider: 12/27/24 15:47 Source: patient Mode of arrival: Ambulatory History of Present Illness HPI Narrative: 69-year-old female reports right foot infection few weeks ago, completed a course of oral doxycycline with improved symptoms, at that visit had x-ray then CT scanning showing no fracture changes or bony infection changes. Symptoms got better after doxycycline, she had been off antibiotics for about one-week, now having similar puffiness and redness to the skin similar area of the foot. She would like another course of antibiotics, for a longer duration of treatment. No fevers or chills. No injuries. No toenail problems, weeping or discharge, or athlete's foot known. No punctures or lesions or cuts recalled. Related Data Home Medications ?Medication ?Instructions ?Recorded ?Confirmed hydroquinone 4 % topical cream applic topical 08/20/24 10/17/24 Previous Rx's ?Medication ?Instructions ?Recorded fluticasone propionate 50 1 spray intranasal DAILY #16 grams 04/11/22 mcg/actuation nasal spray,suspension doxycycline hyclate 100 mg capsule 100 mg PO BID #20 c aps 11/21/24 doxycycline hyclate 100 mg capsule 100 mg PO BID #28 c aps 12/27/24 Allergies Allergy/AdvReac Type Severity Reaction Status Date / Time Penicillins Allergy Verified 11/21/24 19:09 Sulfa (Sulfonamide AdvReac Unknown Verified 11/21/24 19:09 Antibiotics) Patient History Medical History (Updated 12/27/24 @ 19:29 by Tim Weir MD) Somatic dysfunction of lower extremity Sacral region somatic dysfunction Pelvic somatic dysfunction Strain of right piriformis muscle Social History Smoking Status: Never smoker Smoking Status: Never smoker alcohol intake frequency: holidays/special occasions only Exam Narrative Exam Narrative: GENERAL: Well-developed patient, in mild distress. HEAD: Atraumatic. Normocephalic. EYES: Pupils equal round and reactive. Extraocular motions intact. No scleral icterus. No injection or drainage. ENT: Nose without bleeding, purulent drainage. Throat without erythema, tonsil lar hypertrophy or exudate. Airway patent. NECK: Trachea midline. Non tender CARDIOVASCULAR: Regular rate and rhythm without murmurs, gallops, or rubs. RESPIRATORY: Clear to auscultation. Breath sounds equal bilaterally. No wheezes, rales, or rhonchi. GASTROINTESTINAL: Abdomen soft, non-tender, nondistended. EXTREMITIES: Erythema to the right distal foot, seems well perfused, no necrotic changes, no periungual redness or fluctuance, no significant toenail abnormalities, no intertriginous cellulitis or skin breakdown, no athlete's foot like changes. No punctures or lacerations or abrasion changes. BACK: Nontender without deformity or crepitance. No flank tenderness. NEURO: AOx3. Motor functions grossly nonfocal. SKIN: No rash or erythema of visible areas Initial Vital Signs Initial Vital Signs: Vital Signs Temperature 98.7 F 12/27/24 15:04 Pulse Rate 70 12/27/24 15:04 Respiratory Rate 18 12/27/24 15:04 Blood Pressure 150/82 H 12/27/24 15:04 Pulse Oximetry 96 12/27/24 15:04 Oxygen Delivery Method Room Air 12/27/24 15:04 Course Orders Ordered: Discontinued Medications Doxycycline Hyclate (Doxycycline Hyclate 100 Mg Tablet) 100 mg PO NOW ONE Stop: 12/27/24 19:31 Last Admin: 12/27/24 19:38 Dose: 100 mg Documented By: TADEO Vital Signs Vital signs: Vital Signs - 8 hr 12/27/24 19:42 Temperature 98.1 F Pulse Rate 71 Respiratory Rate 20 Blood Pressure 189/92 H Pulse Oximetry 98 Oxygen Delivery Method Room Air MDM - Extremity (Nontraumatic) MDM Narrative Medical decision making narrative: 69-year-old female with recent response to oral doxycycline antibiotic course for right foot swelling and redness suspected infection, at that time had x- ray/CT imaging reportedly negative, well for a week, now with similar redness and swelling same area. Afebrile on triage. Exam consistent with cellulitis distal foot, seems well perfused, good DP pulse and cap refill toes, no obvious significant perfusion deficit, no periungual or intertriginous infections, no puncture wounds. Distribution not consistent with gout. Consistent with cellulitis. We discussed repeat imaging, declined. Trial of antibiotic, oral dose of doxycycline given, prescription for 14 day course sent to her pharmacy. Recheck advised with their doctor early this next week. Return precautions discussed. Discharged home. Discharge Plan Departure Patient Disposition: Home Clinical Impression: Cellulitis of right foot Instructions: DI for Cellulitis -- Adult Activity Restrictions/Additional Instructions: Recent course of oral doxycycline for right foot pain swelling and redness, x- ray and CT scan done at that time of initial presentation reportedly negative, had good response to doxycycline, antibiotic course was completed about one-week ago, now with similar right foot swelling and some redness. No fever at triage. We discussed imaging, hold for now. We discussed antibiotics, he would prefer to take the same doxycycline course, perhaps a longer course, we will give 14 day course prescription, 1st dose now, remainder of prescription sent electronically to your requested pharmacy. Take antibiotics as directed. Recheck with your regular doctor early this next week. Return to this/nearest emergency department for any change worsening symptoms or any concerns prior. Prescriptions: New doxycycline hyclate 100 mg capsule 100 mg PO BID Qty: 28 0RF No Action fluticasone propionate 50 mcg/actuation spray,suspension 1 spray intranasal DAILY Qty: 16 0RF Rx Instructions: administer into each nostril hydroquinone 4 % cream topical doxycycline hyclate 100 mg capsule 100 mg PO BID Qty: 20 0RF Referrals: Flako Bermeo DO [Primary Care Provider, Family Practice] Stand Alone Forms: Patient Portal/API
[2024-12-27] MEDS: DOXYCYCLINE HYCLATE 100 MG TABLET PO (19:38)
[2024-12-27 19:42] VITALS: BP 189/92; PULSE 71; RESP 20; TEMP 36.7; O2SAT 98
== END 2024-12-27 19:46 | disposition home or self-care (01) ==
PROVIDERS: Emergency Provider Emergency Medicine; PCP Family Medicine
DX: L03.115 Cellulitis of right lower limb (principal)
CPT/HCPCS: 99283